=== PATIENT | female | born 1995 | race Caucasian/White ===

== ENCOUNTER 2020-09-01 19:00 | Inpatient (IN) | payer OTHER, SELFPAY ==
[2020-09-01 19:07] VITALS: BP 132/65; PULSE 96; RESP 18; TEMP 36.8; O2SAT 99; BMI 45.3
[2020-09-01 19:34] VITALS: BP 97/66; PULSE 90; RESP 21; TEMP 36.6; O2SAT 98
--- NOTE | 2020-09-01 19:42 | US_ITS ---
EXAMINATION: US ABDOMEN LIMITED CLINICAL INFORMATION: Right upper quadrant pain, evaluate gallbladder. COMPARISON: None TECHNIQUE: Real-time imaging of the right upper quadrant limited to the gallbladder and common bile. FINDINGS: GALLBLADDER: The gallbladder contains a single 4 mm sized gallstone. The gallbladder is otherwise unremarkable, physiologically distended without evidence sludge, polyps, wall thickening or pericholecystic fluid. The gallbladder wall is 2 mm thick. COMMON BILE DUCT: Normal in caliber measuring 0.4 cm in diameter. US/US abdomen limited IMPRESSION: 1 single small gallstone is seen. No other abnormality is present
--- NOTE | 2020-09-01 19:44 | ED.ABDPAIN ---
HPI - Abdominal Pain General Chief Complaint: Abdominal Pain <Linda Hernadez NP - Last Filed: 09/01/20 21:02> Stated Complaint: Flank pain <Linda Hernadez NP - Last Filed: 09/01/20 21:02> Time Seen by Provider: 09/01/20 19:36 <Linda Hernadez NP - Last Filed: 09/01/20 21:02> Source: patient <Linda Hernadez NP - Last Filed: 09/01/20 21:02> Mode of arrival: ambulatory <Linda Hernadez NP - Last Filed: 09/01/20 21:02> Limitations: no limitations <Linda Hernadez NP - Last Filed: 09/01/20 21:02> History of Present Illness HPI narrative: 25 yo female previously healthy here with abdominal pain and nausea x 1 hr after eating [place] food. No vomiting or diarrhea. No fevers/chills/urinary symptoms. Currently on menses. She has generalized abdominal pain more focal in the RUQ and radiating to the back. H/o gallstones. <Linda Hernadez NP - Last Filed: 09/01/20 21:02> MD elicited complaint: abdominal pain <Linda Hernadez NP - Last Filed: 09/01/20 21:02> Onset (ago): hour(s) <Linda Hernadez NP - Last Filed: 09/01/20 21:02> Pain Consistency: constant <Linda Hernadez NP - Last Filed: 09/01/20 21:02> Location: diffuse and RUQ <Linda Hernadez NP - Last Filed: 09/01/20 21:02> Severity: moderate <JO-ANN Nelson Last Filed: 09/01/20 21:02> Quality: sharp <JO-ANN Nelson Last Filed: 09/01/20 21:02> Radiation: back <Linda Hernadez NP - Last Filed: 09/01/20 21:02> Migration to: no migration <Linda Hernadez NP - Last Filed: 09/01/20 21:02> Exacerbating factors: eating <Linda Hernadez NP - Last Filed: 09/01/20 21:02> Associated symptoms: nausea <Linda Hernadez NP - Last Filed: 09/01/20 21:02> Related Data Allergies/Adverse Reactions: Allergies Allergy/AdvReac Type Severity Reaction Status Date / Time No Known Allergies Allergy Verified 09/01/20 19:07 <Linda Hernadez NP - Last Filed: 09/01/20 21:02> Review of Systems Review of Systems Yes all other systems are reviewed and are negative <Linda Hernadez NP - Last Filed: 09/01/20 21:02> Constitutional: Reports no additional constitutional complaints, Denies body ache(s), Denies chills, Denies fever(s), Denies headache(s) and Denies weakness <Linda Hernadez NP - Last Filed: 09/01/20 21:02> Eyes: Reports no additional eye complaints and Denies change in vision <Linda Hernadez NP - Last Filed: 09/01/20 21:02> Reports system reviewed and no additional complaints, except as documented, Denies dizziness, Denies headache(s), Denies nasal congestion, Denies nasal discharge and Denies neck pain <Linda Hernadez NP - Last Filed: 09/01/20 21:02> Cardiovascular: Reports no additional cardiovascular complaints, Denies chest pain, Denies leg edema and Denies dyspnea <Linda Hernadez NP - Last Filed: 09/01/20 21:02> Respiratory: Reports no additional respiratory complaints, Denies cough and Denies dyspnea <Linda Hernadez NP - Last Filed: 09/01/20 21:02> Gastrointestinal: Reports no additional gastrointestinal complaints, Reports abdominal pain, Denies diarrhea, Reports nausea and Denies vomiting <Linda Hernadez NP - Last Filed: 09/01/20 21:02> Genitourinary: Reports no additional female genitourinary complaints and Denies urinary incontinence <Linda Hernadez NP - Last Filed: 09/01/20 21:02> Musculoskeletal: Reports no additional musculoskeletal complaints, Denies back pain, Denies arthralgias, Denies joint swelling, Denies neck pain, Denies numbness and Denies tingling <Linda Hernadez NP - Last Filed: 09/01/20 21:02> Skin/Breast: Reports system reviewed and no additional complaints, except as docu and Denies rash <Linda Hernadez NP - Last Filed: 09/01/20 21:02> Reports system reviewed and no additional complaints, except as documented, Denies Abnormal speech present, Denies dizziness, Denies headache(s), Denies numbness, Denies tingling and Denies weakness <Linda Hernadez NP - Last Filed: 09/01/20 21:02> Physical Exam Vital Signs: Vital Signs: Last Vital Signs Temp 98 F 09/01/20 19:34 Pulse 64 09/01/20 23:05 Resp 16 09/01/20 23:05 BP 111/63 09/01/20 23:05 Pulse Ox 99 09/01/20 23:05 Body Mass Index 45.3 <Linda Hernadez NP - Last Filed: 09/01/20 21:02> Vital Signs: Last Vital Signs Temp 98 F 09/01/20 19:34 Pulse 64 09/01/20 23:05 Resp 16 09/01/20 23:05 BP 111/63 09/01/20 23:05 Pulse Ox 99 09/01/20 23:05 Body Mass Index 45.3 <Ritika De La Torre MD - Last Filed: 09/02/20 00:29> Const: Other: moaning, rocking back and forth, in pain <Linda Hernadez NP - Last Filed: 09/01/20 21:02> General: cooperative, healthy appearing and anxious <Linda Hernadez NP - Last Filed: 09/01/20 21:02> Orientation/consciousness: patient oriented x3 <Linda Hernadez NP - Last Filed: 09/01/20 21:02> Limitations: no limitations <Linda Hernadez NP - Last Filed: 09/01/20 21:02> HENMT: Head: Yes normal to inspection <Linda Hernadez NP - Last Filed: 09/01/20 21:02> Ears: hearing grossly normal bilaterally <Linda Hernadez NP - Last Filed: 09/01/20 21:02> General nose exam: Normal external nose present <Linda Hernadez NP - Last Filed: 09/01/20 21:02> Face and sinus: Yes normal facial exam <Linda Hernadez NP - Last Filed: 09/01/20 21:02> Mouth: Normal oral and palatal mucosa present <Linda Hernadez NP - Last Filed: 09/01/20 21:02> Throat: Yes posterior oropharynx normal <Linda Hernadez NP - Last Filed: 09/01/20 21:02> Eyes: General: appearance normal, both eyes and all related structures <Linda Hernadez NP - Last Filed: 09/01/20 21:02> Pupils: Equal, round and reactive pupils present <Linda Hernadez NP - Last Filed: 09/01/20 21:02> Neck: Neck: Yes normal visual inspection <Linda Hernadez NP - Last Filed: 09/01/20 21:02> Chest: Chest palpation & inspection: normal inspection of the chest <Linda Hernadez NP - Last Filed: 09/01/20 21:02> Resp: Effort & Inspection: normal respiratory effort <Linda Hernadez NP - Last Filed: 09/01/20 21:02> Auscultation: clear to auscultation bilaterally <Linda Hernadez NP - Last Filed: 09/01/20 21:02> Cardio: Rate: regular rate <Linda Hernadez NP - Last Filed: 09/01/20 21:02> Rhythm: regular rhythm <Linda Hernadez NP - Last Filed: 09/01/20 21:02> Peripheral pulses: Peripheral pulses 2+ throughout <Linda Hernadez NP - Last Filed: 09/01/20 21:02> GI: Other: difffuse abdominal pain, more focal in the RUQ, patient holding right side and right flank <Linda Hernadez NP - Last Filed: 09/01/20 21:02> Inspection: Yes normal to inspection <Linda Herndaez NP - Last Filed: 09/01/20 21:02> Palpation (GI): Soft to palpation and nontender <Linda Hernadez NP - Last Filed: 09/01/20 21:02> Auscultation: normal bowel sounds <Linda Hernadez NP - Last Filed: 09/01/20 21:02> Back/Spine/Pelvis: Other: Unable to illicit pain in the back, entire back is reporterd as painful. <Linda Hernadez NP - Last Filed: 09/01/20 21:02> Thoracic/Lumbar Spine: thoracic and lumbar spine normal to inspection <Linda Hernadez NP - Last Filed: 09/01/20 21:02> Skin: General skin exam: no rashes or lesions noted <Linda Hernadez NP - Last Filed: 09/01/20 21:02> Neuro: General: patient oriented x3, no focal motor deficits and normal sensation to monofilament <Linda Hernadez NP - Last Filed: 09/01/20 21:02> Cranial nerves: Yes Equal, round and reactive pupils present <Linda Hernadez NP - Last Filed: 09/01/20 21:02> Cognition (Neuro): normal cognition <Linda Hernadez NP - Last Filed: 09/01/20 21:02> Speech: No Abnormal speech present <Linda Hernadez NP - Last Filed: 09/01/20 21:02> Gait exam (Neuro): Normal gait present <Linda Hernadez NP - Last Filed: 09/01/20 21:02> Motor exam (neuro): 5/5 motor strength present throughout <Linda Hernadez NP - Last Filed: 09/01/20 21:02> Extrem: General: Yes normal to inspection <Linda Hernadez NP - Last Filed: 09/01/20 21:02> Course Course Course Narrative: 25 yo female here with abdominal pain with radiating to the back with nausea after eating kitt[place] food. Will need labs, UA, ur preg and abdominal US. 2100-Sign out to Sarah SLITTER PROCESSED FILM pending above. <Linda Hernadez NP - Last Filed: 09/01/20 21:02> MDM - Abdominal Pain MDM Narrative Medical decision making narrative: renal colic, gastritis, gastroenteritis, cholethiasis, acute maria isabel, pancreatitis. <Linda Hernadez NP - Last Filed: 09/01/20 21:02> Patient abdominal pain continuing the emergency department. The ultrasound showed gallstone no evidence for cholecystitis. CT scan noted multiple nonspecific findings. Question hepatitis. Patient continued to have abdominal pain. Case discussed with hospitalist team. Will admit overnight for monitoring and further testing. <Ritika De La Torre MD - Last Filed: 09/02/20 00:29> Medical Records Attestation: I reviewed the patient's medical records. <Linda Hernadez NP - Last Filed: 09/01/20 21:02> Lab Data Attestation: I reviewed the patient's lab results. <Linda Hernadez NP - Last Filed: 09/01/20 21:02> Result diagrams: : 09/01/20 19:51 09/01/20 19:51 <Linda Hernadez NP - Last Filed: 09/01/20 21:02> Labs: Lab Results 09/01/20 09/01/20 09/01/20 Range/Units 19:51 19:51 19:51 WBC 9.9 (4.8-10.8) X10*3/uL RBC 4.64 (4.20-5.50) X10*6/uL Hgb 12.0 (12.0-16.0) g/dl Hct 37.4 (37-47) % MCV 80.6 (80-98) fL MCH 25.9 L (27.0-33.0) pg MCHC 32.1 (31.0-35.0) g/dl RDW 14.0 (11.0-16.0) % Plt Count 409 H (160-400) X10*3/uL MPV 9.3 L (9.4-12.3) fL Immature Gran % (Auto) 0.2 (0.0-0.4) % Neut % (Auto) 74.2 H (45-73) % Lymph % (Auto) 19.3 L (20-40) % [place] % (Auto) 5.0 (2-11) % Eos % (Auto) 1.1 (0-4) % Baso % (Auto) 0.2 (0-2) % Lymph # (Auto) 1.9 (1.2-4.9) X10*3/uL [place] # (Auto) 0.5 (0.1-1.2) X10*3/uL Eos # (Auto) 0.1 (0.0-0.4) X10*3/uL Baso # (Auto) 0.0 (0.0-0.2) X10*3/uL Abs Immat Gran (auto) 0.02 (0.00-0.03) X10*3/uL Absolute Neuts (auto) 7.3 (2.0-8.3) X10*3/uL Absolute Nucleated RBC 0.000 (0.0-0.012) X10*3/uL Nucleated RBC % (auto) 0.0 (0.0-0.2) /100WBC Hold Blue Top SEE NOTE Sodium 140 (135-145) mmol/L Potassium 4.0 (3.3-5.1) mmol/l Chloride 106 (96-108) mmol/L Carbon Dioxide 23 (22-29) mmol/L Anion Gap 15 (12-20) BUN 10 (9-16) mg/dL Creatinine 0.74 (0.5-1.4) mg/dL Estim Creat Clear Calc 127.2 Estimated GFR > 60 Random Glucose 105 (60-115) mg/dL Calcium 9.2 (8.4-10.2) mg/dL Total Bilirubin 0.4 (0.0-1.0) mg/dL Direct Bilirubin 0.2 (0.0-0.5) mg/dL AST 41 H (5-31) U/L ALT 42 H (0-31) U/L Alkaline Phosphatase 152 H (39-117) U/L Total Protein 7.4 (6.5-8.0) g/dL Albumin 4.5 (3.5-5.0) g/dL Lipase 21 (8-78) U/L Urine Color Urine Appearance Urine pH (5.0-8.0) Ur Specific Dow[place] (1.005-1.025) Urine Protein (NEG-TRACE) MG/DL Urine Glucose (UA) (NEG) MG/DL Urine Ketones (NEG) MG/DL Urine Blood (NEG) Urine Nitrite (NEG) Ur Leukocyte Esterase (NEG) Urine RBC (0) /HPF Urine WBC (0-4) /HPF Ur Squamous Epith Cells /LPF Urine Bacteria /LPF Urine Test (NEGATIVE) 09/01/20 Range/Units 21:13 WBC (4.8-10.8) X10*3/uL RBC (4.20-5.50) X10*6/uL Hgb (12.0-16.0) g/dl Hct (37-47) % MCV (80-98) fL MCH (27.0-33.0) pg MCHC (31.0-35.0) g/dl RDW (11.0-16.0) % Plt Count (160-400) X10*3/uL MPV (9.4-12.3) fL Immature Gran % (Auto) (0.0-0.4) % Neut % (Auto) (45-73) % Lymph % (Auto) (20-40) % [place] % (Auto) (2-11) % Eos % (Auto) (0-4) % Baso % (Auto) (0-2) % Lymph # (Auto) (1.2-4.9) X10*3/uL [place] # (Auto) (0.1-1.2) X10*3/uL Eos # (Auto) (0.0-0.4) X10*3/uL Baso # (Auto) (0.0-0.2) X10*3/uL Abs Immat Gran (auto) (0.00-0.03) X10*3/uL Absolute Neuts (auto) (2.0-8.3) X10*3/uL Absolute Nucleated RBC (0.0-0.012) X10*3/uL Nucleated RBC % (auto) (0.0-0.2) /100WBC Hold Blue Top Sodium (135-145) mmol/L Potassium (3.3-5.1) mmol/l Chloride (96-108) mmol/L Carbon Dioxide (22-29) mmol/L Anion Gap (12-20) BUN (9-16) mg/dL Creatinine (0.5-1.4) mg/dL Estim Creat Clear Calc Estimated GFR Random Glucose (60-115) mg/dL Calcium (8.4-10.2) mg/dL Total Bilirubin (0.0-1.0) mg/dL Direct Bilirubin (0.0-0.5) mg/dL AST (5-31) U/L ALT (0-31) U/L Alkaline Phosphatase (39-117) U/L Total Protein (6.5-8.0) g/dL Albumin (3.5-5.0) g/dL Lipase (8-78) U/L Urine Color YELLOW Urine Appearance HAZY Urine pH 6.0 (5.0-8.0) Ur Specific [place] 1.025 (1.005-1.025) Urine Protein NEG (NEG-TRACE) MG/DL Urine Glucose (UA) NEG (NEG) MG/DL Urine Ketones NEG (NEG) MG/DL Urine Blood 3+ H (NEG) Urine Nitrite NEG (NEG) Ur Leukocyte Esterase 1+ H (NEG) Urine RBC 15-29 H (0) /HPF Urine WBC 5-9 H (0-4) /HPF Ur Squamous Epith Cells TRACE /LPF Urine Bacteria NONE /LPF Urine Test NEGATIVE (NEGATIVE) <Linda Hernadez NP - Last Filed: 09/01/20 21:02> Lab Results 09/01/20 09/01/20 09/01/20 Range/Units 19:51 19:51 19:51 WBC 9.9 (4.8-10.8) X10*3/uL RBC 4.64 (4.20-5.50) X10*6/uL Hgb 12.0 (12.0-16.0) g/dl Hct 37.4 (37-47) % MCV 80.6 (80-98) fL MCH 25.9 L (27.0-33.0) pg MCHC 32.1 (31.0-35.0) g/dl RDW 14.0 (11.0-16.0) % Plt Count 409 H (160-400) X10*3/uL MPV 9.3 L (9.4-12.3) fL Immature Gran % (Auto) 0.2 (0.0-0.4) % Neut % (Auto) 74.2 H (45-73) % Lymph % (Auto) 19.3 L (20-40) % [place] % (Auto) 5.0 (2-11) % Eos % (Auto) 1.1 (0-4) % Baso % (Auto) 0.2 (0-2) % Lymph # (Auto) 1.9 (1.2-4.9) X10*3/uL [place] # (Auto) 0.5 (0.1-1.2) X10*3/uL Eos # (Auto) 0.1 (0.0-0.4) X10*3/uL Baso # (Auto) 0.0 (0.0-0.2) X10*3/uL Abs Immat Gran (auto) 0.02 (0.00-0.03) X10*3/uL Absolute Neuts (auto) 7.3 (2.0-8.3) X10*3/uL Absolute Nucleated RBC 0.000 (0.0-0.012) X10*3/uL Nucleated RBC % (auto) 0.0 (0.0-0.2) /100WBC Hold Blue Top SEE NOTE Sodium 140 (135-145) mmol/L Potassium 4.0 (3.3-5.1) mmol/l Chloride 106 (96-108) mmol/L Carbon Dioxide 23 (22-29) mmol/L Anion Gap 15 (12-20) BUN 10 (9-16) mg/dL Creatinine 0.74 (0.5-1.4) mg/dL Estim Creat Clear Calc 127.2 Estimated GFR > 60 Random Glucose 105 (60-115) mg/dL Calcium 9.2 (8.4-10.2) mg/dL Total Bilirubin 0.4 (0.0-1.0) mg/dL Direct Bilirubin 0.2 (0.0-0.5) mg/dL AST 41 H (5-31) U/L ALT 42 H (0-31) U/L Alkaline Phosphatase 152 H (39-117) U/L Total Protein 7.4 (6.5-8.0) g/dL Albumin 4.5 (3.5-5.0) g/dL Lipase 21 (8-78) U/L Urine Color Urine Appearance Urine pH (5.0-8.0) Ur Specific [place] (1.005-1.025) Urine Protein (NEG-TRACE) MG/DL Urine Glucose (UA) (NEG) MG/DL Urine Ketones (NEG) MG/DL Urine Blood (NEG) Urine Nitrite (NEG) Ur Leukocyte Esterase (NEG) Urine RBC (0) /HPF Urine WBC (0-4) /HPF Ur Squamous Epith Cells /LPF Urine Bacteria /LPF Urine Test (NEGATIVE) 09/01/20 Range/Units 21:13 WBC (4.8-10.8) X10*3/uL RBC (4.20-5.50) X10*6/uL Hgb (12.0-16.0) g/dl Hct (37-47) % MCV (80-98) fL MCH (27.0-33.0) pg MCHC (31.0-35.0) g/dl RDW (11.0-16.0) % Plt Count (160-400) X10*3/uL MPV (9.4-12.3) fL Immature Gran % (Auto) (0.0-0.4) % Neut % (Auto) (45-73) % Lymph % (Auto) (20-40) % [place] % (Auto) (2-11) % Eos % (Auto) (0-4) % Baso % (Auto) (0-2) % Lymph # (Auto) (1.2-4.9) X10*3/uL [place] # (Auto) (0.1-1.2) X10*3/uL Eos # (Auto) (0.0-0.4) X10*3/uL Baso # (Auto) (0.0-0.2) X10*3/uL Abs Immat Gran (auto) (0.00-0.03) X10*3/uL Absolute Neuts (auto) (2.0-8.3) X10*3/uL Absolute Nucleated RBC (0.0-0.012) X10*3/uL Nucleated RBC % (auto) (0.0-0.2) /100WBC Hold Blue Top Sodium (135-145) mmol/L Potassium (3.3-5.1) mmol/l Chloride (96-108) mmol/L Carbon Dioxide (22-29) mmol/L Anion Gap (12-20) BUN (9-16) mg/dL Creatinine (0.5-1.4) mg/dL Estim Creat Clear Calc Estimated GFR Random Glucose (60-115) mg/dL Calcium (8.4-10.2) mg/dL Total Bilirubin (0.0-1.0) mg/dL Direct Bilirubin (0.0-0.5) mg/dL AST (5-31) U/L ALT (0-31) U/L Alkaline Phosphatase (39-117) U/L Total Protein (6.5-8.0) g/dL Albumin (3.5-5.0) g/dL Lipase (8-78) U/L Urine Color YELLOW Urine Appearance HAZY Urine pH 6.0 (5.0-8.0) Ur Specific [place] 1.025 (1.005-1.025) Urine Protein NEG (NEG-TRACE) MG/DL Urine Glucose (UA) NEG (NEG) MG/DL Urine Ketones NEG (NEG) MG/DL Urine Blood 3+ H (NEG) Urine Nitrite NEG (NEG) Ur Leukocyte Esterase 1+ H (NEG) Urine RBC 15-29 H (0) /HPF Urine WBC 5-9 H (0-4) /HPF Ur Squamous Epith Cells TRACE /LPF Urine Bacteria NONE /LPF Urine Test NEGATIVE (NEGATIVE) <Ritika De La Torre MD - Last Filed: 09/02/20 00:29> [facility] Past Medical History Attestation statement: The following information was validated with the patient. <Linda Hernadez NP - Last Filed: 09/01/20 21:02> Source: old records reviewed and nursing notes reviewed <Linda Hernadez NP - Last Filed: 09/01/20 21:02> Medical History: Medical History delivery delivered <Linda Hernadez NP - Last Filed: 09/01/20 21:02> Social History Social History: Social History Smoked in Last 30 Days: No Use of substances other than those prescribed or required for medical reasons: Yes Substance Use Type: Marijuana Advance Directives: No Advance Directives Information Provided: Yes <Linda Hernadez NP - Last Filed: 09/01/20 21:02>
[2020-09-01] MEDS: 0.9 % Sodium Chloride 1,000 ML 999 ML IVCONT (19:54)
[2020-09-01] MEDS: ondansetron HCL 4 MG/2 ML VIAL IVPUSH (19:57)
[2020-09-01] MEDS: fentaNYL citrate/PF 100 MCG/2 ML VIAL 50 MCG IVPUSH (19:58)
[2020-09-01] MEDS: Famotidine/PF 20 MG/2 ML VIAL IVPUSH (20:00)
[2020-09-01 20:02] LABS: MANUAL DIFF FLAG NO
[2020-09-01 20:05] LABS: Basophils Percent Auto 0.2 % (0-2); Eosinophils Absolute Auto 0.1 X10*3/uL (0.0-0.4); Eosinophils Percent Auto 1.1 % (0-4); Hematocrit 37.4 % (37-47); Imm Gran Abs Auto 0.02 X10*3/uL (0.00-0.03); Imm Gran Pct Auto 0.2 % (0.0-0.4); Lymphocytes Absolute Auto 1.9 X10*3/uL (1.2-4.9); Lymphocytes Percent Auto 19.3 % (20-40); Mean Corpuscular HGB Conc 32.1 g/dl (31.0-35.0); Mean Corpuscular Hemoglobin 25.9 pg (27.0-33.0); Mean Corpuscular Volume 80.6 fL (80-98); Mean Platelet Volume 9.3 fL (9.4-12.3); Monocytes Absolute Auto 0.5 X10*3/uL (0.1-1.2); Neutrophils Absolute Auto 7.3 X10*3/uL (2.0-8.3); Neutrophils Percent Auto 74.2 % (45-73); Platelet Count 409 X10*3/uL (160-400); Red Blood Count 4.64 X10*6/uL (4.20-5.50); White Blood Count 9.9 X10*3/uL (4.8-10.8)
[2020-09-01 20:26] LABS: Alanine Aminotransferase 42 U/L (0-31); Albumin Level 4.5 g/dL (3.5-5.0); Alkaline Phosphatase 152 U/L (39-117); Anion Gap 15 (12-20); Aspartate Amino Transferase 41 U/L (5-31); Bilirubin Direct 0.2 mg/dL (0.0-0.5); Bilirubin Total 0.4 mg/dL (0.0-1.0); Blood Urea Nitrogen 10 mg/dL (9-16); Calcium 9.2 mg/dL (8.4-10.2); Carbon Dioxide 23 mmol/L (22-29); Chloride 106 mmol/L (96-108); Creatinine Clr Calc Pharmacy 127.2; Estimated Glomerular Filt Rate > 60; Glucose Random 105 mg/dL (60-115); Lipase 21 U/L (8-78); Sodium 140 mmol/L (135-145); Total Protein 7.4 g/dL (6.5-8.0)
--- NOTE | 2020-09-01 20:42 | PC.NURSE ---
Pt aware of urine sample but states she is unable to go right now. U/S at bedside. Continue to monitor.
--- NOTE | 2020-09-01 21:14 | PC.NURSE ---
UA obtained and sent. Pt resting in bed, reports 5/10 pain, states the pain is radiating into her lower back from the left side of her abdomen. VSS. Continue to monitor.
[2020-09-01 21:15] VITALS: BP 117/76; PULSE 70; RESP 16; O2SAT 99
[2020-09-01 21:25] LABS: Glucose Urine UA NEG (NEG); Leukocyte Esterase Urine 1+ (NEG); Nitrite Urine NEG (NEG); Specific Gravity - Urine 1.025 (1.005-1.025); Urine Blood 3+ (NEG); Urine Ketones NEG (NEG); Urine Protein NEG (NEG-TRACE)
[2020-09-01 21:29] LABS: Appearance Urine HAZY; Color Urine YELLOW
[2020-09-01 21:50] LABS: Squamous Epithelial Cell Urine TRACE /LPF; UPreg QC Valid YES; Urine Pregnancy NEGATIVE (NEGATIVE)
--- NOTE | 2020-09-01 22:11 | CT_ITS ---
EXAMINATION: CT ABDOMEN AND PELVIS WITH CONTRAST CLINICAL INFORMATION: Abdominal pain COMPARISON: Ultrasound performed 09/01/2020 TECHNIQUE: Multidetector volumetric images were obtained from the superior aspect of the liver through the pubic symphysis following administration 85 mL of Omnipaque 350 intravenous contrast. Sagittal and coronal reformatted images were obtained on the technologist's workstation. Oral contrast: No This CT examination was performed using dose optimization techniques as appropriate, variously including the following: *Automated exposure control *Adjustment of mA and/or kV according to patient size (this includes techniques or standardized protocols for targeted exams where dose is matched to indication/reason for exam; i.e. extremities or head) *Use of iterative reconstruction technique DLP: 920 mGy-cm FINDINGS: LUNG BASES: The visualized lung bases are unremarkable. LIVER, GALLBLADDER, AND BILIARY TREE: There is mottled low-attenuation changes throughout the right lobe of liver more prominent posteriorly. No intra or extra hepatic biliary dilatation. Cholelithiasis. Mild pericholecystic fluid. PANCREAS: Unremarkable. SPLEEN: Unremarkable. ADRENAL GLANDS: Unremarkable. KIDNEYS AND URETERS: The kidneys are normal in size, shape, and attenuation. No hydronephrosis, hydroureter, or calculi seen. No perinephric stranding. BLADDER: Unremarkable. GASTROINTESTINAL TRACT: The small and large bowel are unremarkable. The appendix is unremarkable. ABDOMINAL WALL: No significant hernia is appreciated. LYMPH NODES: Normal. VASCULAR: Unremarkable. PELVIC VISCERA: Evidence of prior section. There is a scar within the anterior lower uterine segment, and along the anterior uterus with scar tissue extending to the anterior abdominal wall. No adnexal abnormalities. OSSEOUS STRUCTURES: Unremarkable. CT/CT abdomen pelvis w con IMPRESSION: * Diffusely heterogeneous right lobe of liver with low-attenuation changes predominating posteriorly. Vessels are coursing through the areas showing low-attenuation change, for example within hepatic segment 7. This could represent hepatitis, although the right hepatic predominance would be atypical for a viral hepatitis. While the dependent right sided changes are suggestive of pyogenic gastrointestinal source of infection, the lack of fever or elevated white blood cell count make this less likely. Fungal infection is possible, although statistically unlikely in the absence of immunocompromise or suggestive travel history. Geographic hepatic steatosis can look this way, however is somewhat atypical. * Cholelithiasis and mild pericholecystic fluid. The recent right upper quadrant ultrasound demonstrated a positive sonographic Rees sign. While there were no other imaging features of cholecystitis, consider HIDA scan to confirm patency of the cystic duct. This critical result was discussed with Ritika De La Torre M.D. at 12:12 AM on 09/02/2020 and it was ascertained that the content and urgency of the report was understood at the time of direct communication.
[2020-09-01 23:05] VITALS: BP 111/63; PULSE 64; RESP 16; O2SAT 99
[2020-09-01] MEDS: iohexoL 350 MG/ML 100 ML INFUS..BTL 85 ML IV (23:56)
[2020-09-02] VITALS (7 sets, daily range): BP systolic 99–119; BP diastolic 49–71; PULSE 62–86; RESP 16–18; TEMP 36.3–37.1; O2SAT 97–100; BMI 45.2
--- NOTE | 2020-09-02 00:07 | PC.NURSE ---
Pt ambulating to/from the bathroom with a gaines/steady gait.
--- NOTE | 2020-09-02 00:31 | PC.NURSE ---
MD at bedside discussing CT results and plan to admit. Med Rec completed at bedside with pt, per pt, no home medications.
--- NOTE | 2020-09-02 00:39 | PC.NURSE ---
Covid swab obtained and sent.
--- NOTE | 2020-09-02 00:43 | PC.NURSE ---
Hospitalist at bedside.
[2020-09-02 01:01] LABS: COVID-19 Test Negative (Negative); IDNOW Serial# 9DD0AD1C
--- NOTE | 2020-09-02 05:24 | P.HPHOSP_ITS ---
History of Present Illness Date of Service: 09/02/20 Chief Complaint: abdominal pain this is a 25-year-old female with no significant past medical history and recently about 6 weeks now who presents to the hospital with complaints of abdominal pain. Patient describes the pain as epigastric, radiating to the sides and to the back, associated with food intake, 10/10, that started the night prior to presentation, she also reports a similar episode shortly after giving but not as severe. Patient denies any fever or chills. No shortness of breath chest pain, or cough. Nausea with no vomiting, no diarrhea constipation. No urinary symptoms and no lower extremity edema. On arrival to the ED hemodynamically stable with no significant abnormal vitals. Labs are significant for mildly elevated AST of 41, ALT of 42, alk-phos of 152, urine is positive for leukocyte Estrace, and WBC but patient the adamantly denies any dysuria, no urgency, frequency, or any type of urinary symptoms. Abdominal CT suggestive of diffusely heterogeneous right lobe of liver with low attenuation changes predominantly posterior early. Vessels are coursing through the areas showing low-attenuation change. This could represent hepatitis, although the right hepatic predominance would be atypical for viral hepatitis. While the dependent right-sided changes are suggestive of hygienic gastrointestinal starts of infection, The lack of fever, or elevated WBC count makes this less likely. Fungal infections less likely in an immunocompetent patient. CT also be suggestive of geographic hepatic steatosis. ultrasound of the abdomen showed Cholelithiasis and mild pericholecystic fluid is present and ultrasound demonstrate a positive sonographic Rees sign. past medical history: Denies next on past surgical history Family history: Denies Social history: Comes from home, recently gave to her son on July 19. Denies tobacco alcohol or illicit drugs Review of Systems Review of Systems: Yes all other systems are reviewed and are negative Musculoskeletal: Musculoskeletal: Denies numbness and Denies tingling Neurologic: Reports system reviewed and no additional complaints, except as documented, Denies Abnormal speech present, Denies numbness and Denies tingling PMFSH Medical History delivery delivered Social History Smoked in Last 30 Days: No Use of substances other than those prescribed or required for medical reasons: Yes Substance Use Type: Marijuana Advance Directives: No Advance Directives Information Provided: Yes Meds Allergies Allergy/AdvReac Type Severity Reaction Status Date / Time No Known Allergies Allergy Verified 09/01/20 19:07 Home Medications Medication Instructions Recorded Confirmed Type No Known Home Meds 09/02/20 09/02/20 History Physical Exam Vital Signs and Narrative: Vital Signs: Last Vital Signs Temp 98 F 09/01/20 19:34 Pulse 80 09/02/20 03:02 Resp 16 09/02/20 03:02 BP 99/49 L 09/02/20 03:02 Pulse Ox 99 09/01/20 23:05 Body Mass Index 45.3 Const: General: cooperative and no acute distress Orientation/consciousness: patient oriented x3 Eyes: General: appearance normal, both eyes and all related structures Pupils: Equal, round and reactive pupils present Resp: Effort & Inspection: normal respiratory effort and able to speak in complete sentences Auscultation: clear to auscultation bilaterally Cardio: Rate: regular rate Rhythm: regular rhythm GI: Other: right upper quadrant tenderness. Rees sign positive Palpation (GI): Soft to palpation Skin: General skin exam: no rashes or lesions noted Neuro: General: patient oriented x3 Cranial nerves: Yes Equal, round and reactive pupils present Cognition (Neuro): normal cognition Speech: No Abnormal speech present Extrem: General: Yes normal to inspection and Yes no pedal edema Results Labs CBC and Chem 7: 09/01/20 19:51 09/01/20 19:51 Labs: Laboratory Results - last 24 hr 09/01/20 09/01/20 09/01/20 19:51 19:51 19:51 MCV 80.6 MCH 25.9 L MCHC 32.1 RDW 14.0 Plt Count 409 H MPV 9.3 L Immature Gran % (Auto) 0.2 Neut % (Auto) 74.2 H Lymph % (Auto) 19.3 L [place] % (Auto) 5.0 Eos % (Auto) 1.1 Baso % (Auto) 0.2 Lymph # (Auto) 1.9 [place] # (Auto) 0.5 Eos # (Auto) 0.1 Baso # (Auto) 0.0 Abs Immat Gran (auto) 0.02 Absolute Neuts (auto) 7.3 Absolute Nucleated RBC 0.000 Nucleated RBC % (auto) 0.0 Hold Blue Top SEE NOTE Anion Gap 15 Estim Creat Clear Calc 127.2 Estimated GFR > 60 Random Glucose 105 Calcium 9.2 Total Bilirubin 0.4 Direct Bilirubin 0.2 AST 41 H ALT 42 H Alkaline Phosphatase 152 H Total Protein 7.4 Albumin 4.5 Lipase 21 Urine Color Urine Appearance Urine pH Ur Specific [place] Urine Protein Urine Glucose (UA) Urine Ketones Urine Blood Urine Nitrite Ur Leukocyte Esterase Urine RBC Urine WBC Ur Squamous Epith Cells Urine Bacteria Urine Test COVID-19 (ELVI) COVID-19 Clin Com 09/01/20 09/02/20 21:13 00:38 MCV MCH MCHC RDW Plt Count MPV Immature Gran % (Auto) Neut % (Auto) Lymph % (Auto) [place] % (Auto) Eos % (Auto) Baso % (Auto) Lymph # (Auto) [place] # (Auto) Eos # (Auto) Baso # (Auto) Abs Immat Gran (auto) Absolute Neuts (auto) Absolute Nucleated RBC Nucleated RBC % (auto) Hold Blue Top Anion Gap Estim Creat Clear Calc Estimated GFR Random Glucose Calcium Total Bilirubin Direct Bilirubin AST ALT Alkaline Phosphatase Total Protein Albumin Lipase Urine Color YELLOW Urine Appearance HAZY Urine pH 6.0 Ur Specific [place] 1.025 Urine Protein NEG Urine Glucose (UA) NEG Urine Ketones NEG Urine Blood 3+ H Urine Nitrite NEG Ur Leukocyte Esterase 1+ H Urine RBC 15-29 H Urine WBC 5-9 H Ur Squamous Epith Cells TRACE Urine Bacteria NONE Urine Test NEGATIVE COVID-19 (ELVI) Negative COVID-19 Clin Com See Note Imaging Radiologist's Impressions: Impressions Abdomen Ultrasound 09/01/20 19:42 IMPRESSION: 1 single small gallstone is seen. No other abnormality is present Abdomen/Pelvis CT 09/01/20 22:11 IMPRESSION: * Diffusely heterogeneous right lobe of liver with low-attenuation changes predominating posteriorly. Vessels are coursing through the areas showing low-attenuation change, for example within hepatic segment 7. This could represent hepatitis, although the right hepatic predominance would be atypical for a viral hepatitis. While the dependent right sided changes are suggestive of pyogenic gastrointestinal source of infection, the lack of fever or elevated white blood cell count make this less likely. Fungal infection is possible, although statistically unlikely in the absence of immunocompromise or suggestive travel history. Geographic hepatic steatosis can look this way, however is somewhat atypical. * Cholelithiasis and mild pericholecystic fluid. The recent right upper quadrant ultrasound demonstrated a positive sonographic Rees sign. While there were no other imaging features of cholecystitis, consider HIDA scan to confirm patency of the cystic duct. This critical result was discussed with Ritika De La Torre M.D. at 12:12 AM on 09/02/2020 and it was ascertained that the content and urgency of the report was understood at the time of direct communication. Assessment and Plan (1) Abdominal pain: Status: Acute (2) Liver lesion: Status: Acute (3) Cholelithiasis: Status: Acute (4) Transaminitis: Status: Acute this is a 25-year-old female with no significant PMH Was recently , presents to the hospital with abdominal pain. # abdominal pain - most likely secondary to cholecystitis - although has no evidence of cholecystitis specifically on ultrasound or CT scan patient does have a positive Rees sign, ultrasound showed pericholecystic fluid - afebrile, no leukocytosis Plan: - Will make NPO - pain control - consult general surgery # liver lesion - possibly liver changes elated to including fatty liver changes versus acute hepatitis although has no symptoms besides the pain - unlikely to be a an infection of the liver as patient afebrile, no leukocytosis, no evidence of infection Plan: - Will order hepatitis A B C panel - consult GI - will hold off on ordering HIDA scan pending GI recommendation # transaminitis - most likely related to cholecystitis - will follow LFTs DVT prophylaxis: Lovenox
--- NOTE | 2020-09-02 06:45 | PC.NURSE ---
This RN at bedside to obtain an updated set of VS and bloodwork. This RN noticing that pts IV had been removed. Pt states that it was removed during CT as it blew up. A second IV line was established, labs obtained and sent. Pt now reporting burning and dysuria beginning when she woke up this morning. This RN tiger texting hospitalist to inform her of new symptoms regarding UTI. Per MD, to administer Rocephin, no BCX ordered. VSS. Rocephin infusing per EMAR. Continue to monitor.
[2020-09-02] MEDS: cefTRIAXone sodium 1 GM in 0.9 % Sodium Chloride 50 ML IV (06:47)
--- NOTE | 2020-09-02 10:49 | PC.NURSE ---
pt needs being met, waiting on bed assignment
--- NOTE | 2020-09-02 14:01 | PC.NURSE ---
rn will call back for report
--- NOTE | 2020-09-02 14:06 | PM.GICN ---
History of Present Illness Data of Consult Service Date: 09/02/20 Requesting physician: Ramos Hodge Primary Care Provider: Silas Ayala MD [facility] Reason for consult: abdominal pain, abnormal CT scan, elevated LFTs, gallstone 25 YF presented to [facility] ED yesterday evening with sudden onset of upper abdominal pain: 25 yo female previously healthy here with abdominal pain and nausea x 1 hr after eating Pashto food. No vomiting or diarrhea. No fevers/chills/urinary symptoms. Currently on menses. She has generalized abdominal pain more focal in the RUQ and radiating to the back. H/o gallstones . Labs showed normal CBC and lipase and mildly elevated LFTs. Pt was started on IV ceftriaxone and admitted for further management. IMAGING STUDIES: 09/01/[address] scan showed: Diffusely heterogeneous right lobe of liver with low-attenuation changes predominating posteriorly. Vessels are coursing through the areas showing low-attenuation change, for example within hepatic segment 7. This could represent hepatitis, although the right hepatic predominance would be atypical for a viral hepatitis. While the dependent right sided changes are suggestive of pyogenic gastrointestinal source of infection, the lack of fever or elevated white blood cell count make this less likely. Fungal infection is possible, although statistically unlikely in the absence of immunocompromise or suggestive travel history. Geographic hepatic steatosis can look this way, however is somewhat atypical. Cholelithiasis and mild pericholecystic fluid. The recent right upper quadrant ultrasound demonstrated a positive sonographic Rees sign. While there were no other imaging features of cholecystitis, consider HIDA scan to confirm patency of the cystic duct. Patient complains of 10/10 epigastric/RUQ pain yesterday. Pain was a initially burning and felt like hunger pains. Pain changed to cramping and punching in character and radiated laterally and to the back. Patient came to [facility] ED and pain resolved after 2 hours when she was given IV Sublimaze 50 mcg. She complains of nausea and denies vomiting, fever, chills, sweating or change in appetite or bowel movements. Denies recent change in bowel habits, constipation, diarrhea, black stools or rectal bleeding. Patient admits to losing weight which she attributes to not eating since she is taking care of a 6-week-old baby. She delivered by on 07/19/20 and had to stop breast feeding due to difficulty with . Patient denies known family history of liver disease, colon polyps, colon cancer or other GI malignancies. Her grandmother had gallstones and underwent cholecystectomy. Review of Systems Constitutional: Constitutional: Denies fever(s), Denies headache(s), Denies weakness and Reports weight loss Eyes: Eyes: Denies eye discharge and Denies irritation ENT: Denies dysphagia, Denies dizziness and Denies headache(s) Cardiovascular: Cardiovascular: Denies chest pain, Denies leg edema and Denies dyspnea on exertion Respiratory: Respiratory: Denies cough and Denies dyspnea on exertion Gastrointestinal: Gastrointestinal: Reports abdominal pain, Denies change in bowel habits, Denies dysphagia, Denies heartburn and Reports nausea Genitourinary: Genitourinary: Denies difficulty voiding and Denies dysuria Musculoskeletal: Musculoskeletal: Denies numbness and Denies tingling Integumentary/Breasts: Skin/Breast: Denies pruritus, Denies rash and Denies jaundice Neurologic: Reports system reviewed and no additional complaints, except as documented, Denies Abnormal speech present, Denies dizziness, Denies headache(s), Denies numbness, Denies tingling and Denies weakness Psychiatric: Psychiatric: Reports anxiety, Denies depression ( Mild depression) and Denies panic attacks Endocrine: Endocrine: Denies cold intolerance, Denies flushing and Denies heat intolerance PMFSH Past Medical History Medical History (Updated 10/07/20 @ 17:04 by Garrett Redd MD) delivery delivered (~06/2020) Transaminitis Social History Social History Household Members: Family Housing: Apartment Smoking Status: Never smoker Substance Use Type: Marijuana service: No Current occupational status: unemployed Meds Allergies Allergy/AdvReac Type Severity Reaction Status Date / Time No Known Allergies Allergy Verified 09/01/20 19:07 Home Medications Medication Instructions Recorded Confirmed Type No Known Home Meds 09/02/20 09/02/20 History Physical Exam Vital Signs: Vital Signs: Last Vital Signs Temp 98.7 F 09/02/20 10:35 Pulse 80 09/02/20 10:35 Resp 18 09/02/20 10:35 BP 119/66 09/02/20 10:35 Pulse Ox 98 09/02/20 10:35 Body Mass Index 45.3 Const: General: healthy appearing and no acute distress Nutritional Appearance: average body habitus Orientation/consciousness: patient oriented x3 Limitations: no limitations HENMT: Head: Yes normal to inspection Ears: hearing grossly normal bilaterally Eyes: Sclerae: sclerae normal Pupils: Equal, round and reactive pupils present Neck: Neck: Yes normal visual inspection Chest: Chest palpation & inspection: normal inspection of the chest Resp: Effort & Inspection: normal respiratory effort Auscultation: clear to auscultation bilaterally Cardio: Palpation: normal PMI Rate: regular rate Rhythm: regular rhythm Heart sounds: S1 normal heart sound present, S2 normal heart sound present and no murmurs GI: Palpation (GI): Soft to palpation, Tenderness to palpation present (GI) (mild diffuse abdominal tenderness in epigastrium, RUQ and suprapubic area) and No hepatosplenomegaly present Auscultation: normal bowel sounds Rectal Exam - Female: deferred Skin: General skin exam: no rashes or lesions noted Neuro: General: patient oriented x3, gait normal and moves all extremities Cranial nerves: Yes Equal, round and reactive pupils present Speech: No Abnormal speech present Psych: Appearance: grossly normal Mental Status: mental status grossly normal Results Labs CBC & Chem 7: 09/03/20 04:18 09/03/20 04:18 Labs: Short CBC 09/01/20 Range/Units 19:51 WBC 9.9 (4.8-10.8) X10*3/uL Hgb 12.0 (12.0-16.0) g/dl Hct 37.4 (37-47) % Plt Count 409 H (160-400) X10*3/uL BMP 09/01/20 19:51 Sodium 140 Potassium 4.0 Chloride 106 Carbon Dioxide 23 BUN 10 Creatinine 0.74 Calcium 9.2 Liver Function 09/01/20 Range/Units 19:51 Total Bilirubin 0.4 (0.0-1.0) mg/dL Direct Bilirubin 0.2 (0.0-0.5) mg/dL AST 41 H (5-31) U/L ALT 42 H (0-31) U/L Alkaline Phosphatase 152 H (39-117) U/L Albumin 4.5 (3.5-5.0) g/dL Urine 09/01/20 Range/Units 21:13 Urine Color YELLOW Urine Appearance HAZY Urine pH 6.0 (5.0-8.0) Ur Specific [place] 1.025 (1.005-1.025) Urine Protein NEG (NEG-TRACE) MG/DL Urine Glucose (UA) NEG (NEG) MG/DL Microbiology Microbiology Results: Microbiology 09/01/20 00:00 Urine clean catch - Clean Catch Midstream Urine Culture - Preliminary No growth to date. Assessment and Plan (1) Transaminitis: Status: Inactive (2) Cholelithiasis: Status: Acute (3) Abdominal pain: Status: Acute 25 YF 6 weeks status post admitted with epigastric/RUQ pain associated with nausea Abd CT scan showed Cholelithiasis and mild pericholecystic fluid. Diffusely heterogeneous right lobe of liver with low-attenuation changes predominating posteriorly and low attenuation changes in the vessels coursing through the area. This was felt to represent hepatitis or geographic hepatic steatosis. RECOMMENDATIONS: 1. Continue IV antibiotic. 2. Further evaluation with HIDA scan rule out biliary source of abdominal pain elevated LFTs - given recent , she is at increased risk for gallstones and microlithiasis 3. Agree with Surgical evaluation. ADDENDUM: HIDA scan showed Patent cystic duct. Patent CBD. Normal hepatic uptake.
--- NOTE | 2020-09-02 14:27 | PC.NURSE ---
report given to jaiden Dey be ready for patient until closer to 3
[2020-09-02] MEDS: 0.9 % Sodium Chloride Flush 3 ML SYRINGE IVFLUSH (16:32)
--- NOTE | 2020-09-02 17:10 | P.EN_ITS ---
Event Note Date of Service: 09/02/20 Event Note: 25 yo F who is about 6 weeks post presenting with RUQ abdom inal pain most consistant with bilary colic. Admitted for for w/u; S Seen and examined in the ED reports improvement in the RUQ pain reports on going, even during her at which she was told it was ligament pain reports several episodes after delivery of the pain. no real association with diet, and actually states more painful on empty stomach O vitals - stable gen - nad cvs - s1s2 lungs - clear abd - soft, RUQ tenderness without rebound or guarding ext - no edema A/P 25 yo F with what appears as signs suggestive of biliary colic GI input appreciated Gen Surg consulted HIDA scan ordered will place on clear liquids IV fluids remainder per H&P
[2020-09-02] MEDS: Dextrose 5 % and 0.9 % NaCl 1,000 ML 100 ML IVCONT (17:53)
--- NOTE | 2020-09-02 19:43 | PM.CNGS ---
History of Present Illness Consult details Consult date: 09/02/20 <JILLIAN Smith - Last Filed: 09/02/20 20:22> Reason for consult: abdominal pain <JILLIAN Smith - Last Filed: 09/02/20 20:22> Requesting physician: Ramos Hodge <JILLIAN Smith - Last Filed: 09/02/20 20:22> Narrative: Patient is a 25 yo female ~6 weeks post- presents for ABD pain following eating on the evening of 09/01. She states she has had intermittent episodes like this in the past the most recent around the time of her . She denies any N/V/D. She reports that the pain is mostly located in the RUQ with some radiation to her back at its worst a /. . Labs showed normal CBC and lipase and mildly elevated LFTs. Pt was started on IV ceftriaxone and admitted for further management. Surgery was consulted for further evaluation. ? Transaminitis vs biliary cholic <JILLIAN Smith - Last Filed: 09/02/20 20:22> Review of Systems Constitutional: Constitutional: Denies headache(s) and Denies weakness <JILLIAN Smith - Last Filed: 09/02/20 20:22> ENT: Denies dizziness and Denies headache(s) <JILLIAN Smith - Last Filed: 09/02/20 20:22> Musculoskeletal: Musculoskeletal: Denies numbness and Denies tingling <JILLIAN Smith - Last Filed: 09/02/20 20:22> Neurologic: Reports system reviewed and no additional complaints, except as documented, Denies dizziness, Denies headache(s), Denies numbness, Denies tingling and Denies weakness <JILLIAN Smith - Last Filed: 09/02/20 20:22> [facility] Past Medical History Medical History: Medical History (Updated 09/02/20 @ 20:11 by JILLIAN Smith) delivery delivered (~06/2020) <JILLIAN Smith - Last Filed: 09/02/20 20:22> Social History Social History: Social History Household Members: Family Housing: Apartment Smoking Status: Never smoker Smoked in Last 30 Days: No Use of substances other than those prescribed or required for medical reasons: No Substance Use Type: Marijuana Have you been hit, kicked, punched, or otherwise hurt by someone within the past year? If so, by whom?: No Is there a partner from a previous relationship who is making you feel unsafe now?: No Are you made to feel afraid or neglected: No Advance Directives: No Advance Directives Information Provided: Yes Do you have thoughts of harming others: None Do you have a plan to hurt others: No Plan Recently lost weight without trying: No <JILLIAN Smith - Last Filed: 09/02/20 20:22> Meds Allergies/Adverse reactions: Allergies Allergy/AdvReac Type Severity Reaction Status Date / Time No Known Allergies Allergy Verified 09/01/20 19:07 <JILLIAN Smith - Last Filed: 09/02/20 20:22> Home medications: Home Medications Medication Instructions Recorded Confirmed Type No Known Home Meds 09/02/20 09/02/20 History <JILLIAN Smith - Last Filed: 09/02/20 20:22> Physical Exam Vital Signs: Vital Signs: Last Vital Signs Temp 97.4 F 09/02/20 19:13 Pulse 86 09/02/20 19:13 Resp 16 09/02/20 19:13 BP 107/71 09/02/20 19:13 Pulse Ox 100 09/02/20 19:13 Body Mass Index 45.2 <JILLIAN Smith - Last Filed: 09/02/20 20:22> Results Labs Result diagrams: : 09/01/20 19:51 09/01/20 19:51 <JILLIAN Smith - Last Filed: 09/02/20 20:22> Labs: Abnormal lab results 09/01/20 09/01/20 09/01/20 Range/Units 19:51 19:51 21:13 MCH 25.9 L (27.0-33.0) pg Plt Count 409 H (160-400) X10*3/uL MPV 9.3 L (9.4-12.3) fL Neut % (Auto) 74.2 H (45-73) % Lymph % (Auto) 19.3 L (20-40) % AST 41 H (5-31) U/L ALT 42 H (0-31) U/L Alkaline Phosphatase 152 H (39-117) U/L Urine Blood 3+ H (NEG) Ur Leukocyte Esterase 1+ H (NEG) Urine RBC 15-29 H (0) /HPF Urine WBC 5-9 H (0-4) /HPF Short CBC 09/01/20 Range/Units 19:51 WBC 9.9 (4.8-10.8) X10*3/uL Hgb 12.0 (12.0-16.0) g/dl Hct 37.4 (37-47) % Plt Count 409 H (160-400) X10*3/uL BMP 09/01/20 19:51 Sodium 140 Potassium 4.0 Chloride 106 Carbon Dioxide 23 BUN 10 Creatinine 0.74 Calcium 9.2 Liver Function 09/01/20 Range/Units 19:51 Total Bilirubin 0.4 (0.0-1.0) mg/dL Direct Bilirubin 0.2 (0.0-0.5) mg/dL AST 41 H (5-31) U/L ALT 42 H (0-31) U/L Alkaline Phosphatase 152 H (39-117) U/L Albumin 4.5 (3.5-5.0) g/dL Urine 09/01/20 Range/Units 21:13 Urine Color YELLOW Urine Appearance HAZY Urine pH 6.0 (5.0-8.0) Ur Specific [place] 1.025 (1.005-1.025) Urine Protein NEG (NEG-TRACE) MG/DL Urine Glucose (UA) NEG (NEG) MG/DL Urine Test NEGATIVE (NEGATIVE) All other labs normal. <JILLIAN Smith - Last Filed: 09/02/20 20:22> Assessment and Plan (1) Abdominal pain: Problem details: Evidence of stones on U/S with positive sonographic mallory's sign. There is also some mild elevation of LFT's w/ possible liver pathology. WBC WNL. <JILLIAN Smith - Last Filed: 09/02/20 20:22> Status: Acute <JILLIAN Smith - Last Filed: 09/02/20 20:22> No emergent surgical intervention needed at this time. Recommend HIDA scan to determine bile duct patency Pain mgmt IVF Continue ABX NPO <JILLIAN Smith - Last Filed: 09/02/20 20:22> . General Surgery Attending - Abdirahman Mora M.D. Patient was evaluated with Mr. Juan C Greer PA-C in general supervision over phone. I confirm above findings and plan as documented. Pt is a 25 yo F with gallstones but with no other significant findings of cholecystitis to warrant urgent surgery. Agree w/ HIDA scan if in need of further diagnosing acute cholecystitis. <Jose Mora MD - Last Filed: 09/02/20 22:19>
[2020-09-02] MEDS: Acetaminophen 325 MG TABLET 650 MG PO (20:28)
[2020-09-03] VITALS: BP 122/65; PULSE 68; RESP 14; RESP 16; TEMP 36.1; O2SAT 99
[2020-09-03 04:00] VITALS: BP 120/65; PULSE 72; RESP 18; TEMP 36.1; O2SAT 99
[2020-09-03] MEDS: Dextrose 5 % and 0.9 % NaCl 1,000 ML 100 ML IVCONT (04:17)
[2020-09-03 04:35] LABS: MANUAL DIFF FLAG NO
[2020-09-03 04:42] LABS: Basophils Percent Auto 0.2 % (0-2); Eosinophils Absolute Auto 0.2 X10*3/uL (0.0-0.4); Eosinophils Percent Auto 2.4 % (0-4); Hematocrit 35.7 % (37-47); Hemoglobin 11.2 g/dl (12.0-16.0); Imm Gran Abs Auto 0.01 X10*3/uL (0.00-0.03); Imm Gran Pct Auto 0.2 % (0.0-0.4); Lymphocytes Absolute Auto 1.6 X10*3/uL (1.2-4.9); Mean Corpuscular HGB Conc 31.4 g/dl (31.0-35.0); Mean Corpuscular Hemoglobin 25.3 pg (27.0-33.0); Mean Corpuscular Volume 80.6 fL (80-98); Mean Platelet Volume 9.4 fL (9.4-12.3); Monocytes Absolute Auto 0.4 X10*3/uL (0.1-1.2); Monocytes Percent Auto 5.9 % (2-11); Neutrophils Absolute Auto 4.1 X10*3/uL (2.0-8.3); Neutrophils Percent Auto 65.3 % (45-73); Platelet Count 365 X10*3/uL (160-400); Red Blood Count 4.43 X10*6/uL (4.20-5.50); Red Cell Distribution Width 14.3 % (11.0-16.0); White Blood Count 6.2 X10*3/uL (4.8-10.8)
[2020-09-03 05:00] LABS: Anion Gap 14 (12-20); Blood Urea Nitrogen 7 mg/dL (9-16); Calcium 8.7 mg/dL (8.4-10.2); Carbon Dioxide 21 mmol/L (22-29); Chloride 110 mmol/L (96-108); Creatinine Clr Calc Pharmacy 142.5; Estimated Glomerular Filt Rate > 60; Glucose Random 80 mg/dL (60-115); Potassium 3.8 mmol/l (3.3-5.1); Sodium 141 mmol/L (135-145)
[2020-09-03] MEDS: cefTRIAXone sodium 1 GM in 0.9 % Sodium Chloride 50 ML IV (05:45)
--- NOTE | 2020-09-03 07:16 | NM_ITS ---
EXAMINATION: NUCLEAR MEDICINE HEPATOBILIARY SCAN. CLINICAL INFORMATION: Cholelithiasis. COMPARISON: Ultrasound abdomen limited 09/01/2020. TECHNIQUE: Following intravenous administration of 5 mCi of 99m technetium mebrofenin, imaging over the right upper quadrant was obtained. FINDINGS: Normal hepatic uptake without any focal defects. There is prompt visualization of gallbladder by 13 minutes and small bowel by 26 minutes. No CCK was administered. NM/NM hepatobiliary wo pharm IMPRESSION: Patent cystic duct. Patent CBD. Normal hepatic uptake.
[2020-09-03 07:30] VITALS: BP 108/70; PULSE 56; RESP 18; TEMP 36.2; O2SAT 100
[2020-09-03 08:06] LABS: HBS Num1 176.12 mIU/mL (0-7.99); HBsAGNum1 0.68 S/CO (0.00-0.99); Hepatitis B Surface Antigen Negative (Negative); ~Hepatitis B Surface Antibody REACTIVE (Nonreactive)
[2020-09-03 08:27] LABS: HBc Num1 0.05 S/CO (0.00-0.79); Hepatitis B Core Antibody Nonreactive (Nonreactive); ~HepC Num1 0.11 S/CO (0.00-0.79); ~Hepatitis C Antibody Nonreactive (Nonreactive)
[2020-09-03 11:41] VITALS: BP 118/80; PULSE 67; RESP 18; TEMP 36.3; O2SAT 100
--- NOTE | 2020-09-03 11:52 | MHC.CM.PN ---
nurse cna caregiver note electronic medical record reviewed case discussed on multiple disciplinary rounds, met with patient she delivered a baby boy in June 2020 she lives with her infant son and finance. (whom is caring for him now). patient reports she is not smoking marijuana , , and when she did she would be out of the house and not with the baby present, . case discussed with nursing home social worker co-worker, patient is no longer breast feeding (she reported that she was not getting enough breast milk and the baby is now on formula for dme time now. she has no vna /no dme services in the home. she confirmed that she has health care proxy requested copy to be brought in . patient reports anxiety and what she called post depression referred to cares team. she is active and independent in all adls and mobiity discharge plan home no services [id number] at this time [facility]p [facility] [place] pcp at the [facility]
--- NOTE | 2020-09-03 12:03 | PM.PNGS ---
Subjective Subjective Date of Service: 09/03/20 <Priscila Greene PA-C - Last Filed: 09/03/20 12:09> 09/03/20 <Johan Tolliver MD - Last Filed: 09/03/20 13:08> Interval history: Feeling better this morning. Denies abdominal pain, nausea. Feels hungry. <Priscila Greene PA-C - Last Filed: 09/03/20 12:09> Physical Exam Vital Signs: Vital Signs: Last Vital Signs Temp 97.4 F 09/03/20 11:41 Pulse 67 09/03/20 11:41 Resp 18 09/03/20 11:41 BP 118/80 09/03/20 11:41 Pulse Ox 100 09/03/20 11:41 Body Mass Index 45.2 <Priscila Greene PA-C - Last Filed: 09/03/20 12:09> Const: General: healthy appearing, comfortable, no acute distress and alert <Priscila Greene PA-C - Last Filed: 09/03/20 12:09> Orientation/consciousness: patient oriented x3 <Priscila Greene PA-C - Last Filed: 09/03/20 12:09> Eyes: Sclerae: sclerae normal <Priscila Greene PA-C - Last Filed: 09/03/20 12:09> Resp: Effort & Inspection: normal respiratory effort <Priscila Greene PA-C - Last Filed: 09/03/20 12:09> GI: Palpation (GI): Soft to palpation, Tenderness to palpation present (GI) (mild RUQ tenderness) Rees's sign negative, no guarding, not rigid and No Rebound tenderness present <Priscila Greene PA-C - Last Filed: 09/03/20 12:09> Skin: Other: normal color <Priscila Greene PA-C - Last Filed: 09/03/20 12:09> General skin exam: no rashes or lesions noted <Priscila Greene PA-C - Last Filed: 09/03/20 12:09> Neuro: General: patient oriented x3 <Priscila Greene PA-C - Last Filed: 09/03/20 12:09> Extrem: General: Yes no clubbing, cyanosis or edema <Priscila Greene PA-C - Last Filed: 09/03/20 12:09> Progress Note: A&P Assessment and plan (1) Transaminitis: Status: Acute <MARIA FERNANDA Tracy Last Filed: 09/03/20 12:09> (2) Cholelithiasis: Status: Acute <Priscila Greene PA-C - Last Filed: 09/03/20 12:09> (3) Abdominal pain: Status: Acute <Priscila Greene PA-C - Last Filed: 09/03/20 12:09> Assessment and Plan: Feels improved this morning. GB normal and filling on HIDA scan which strongly goes against cholecystitis. VSS. Abd exam benign- mild RUQ tenderness. Would recommend trial feeding with low fat diet. If tolerating, stable for discharge from surgical standpoint. <Priscila Greene PA-C - Last Filed: 09/03/20 12:09> 25 year old female patient presenting with complaints of abdominal pain in the epigastrium. Patient with a history of recent , and previously identified fatty liver. U/S reviewed and reveals a single gallstone within the gallbladder and normal CBD. HIDA reveals normal filling of gallbladder and flow into small bowel without obstruction of the CBD. Today, she reports feeling improved with no further abdominal pain. Agree with the above assessment and plan. Advance to a low fat diet, with discharge if well tolerated. I do not think she needs a cholecystectomy for the single gallstone. <Johan Tolliver MD - Last Filed: 09/03/20 13:08> Fall Risk Details Current Medications: Current Medications Generic Name Dose Route Start Last Admin Trade Name Freq PRN Reason Stop Dose Admin Acetaminophen 650 mg 09/02/20 09:45 09/02/20 20:28 Acetaminophen 325 Mg Tablet PO 650 mg Q6H PRN Administration Pain, Mild (Pain Scale 1-3) Docusate Sodium 100 mg 09/02/20 09:45 Docusate Sodium 100 Mg Capsule PO DAILY PRN Constipation Enoxaparin Sodium 40 mg 09/02/20 09:45 09/03/20 10:13 Enoxaparin Sodium 40 Mg/0.4 Ml Syringe SUBCUT Not Given Q24H ANNELIESE Ceftriaxone Sodium 1 gm/ 50 mls @ 100 mls/hr 09/02/20 06:15 09/03/20 06:40 Sodium Chloride IV Infused Q24H ANNELIESE Infusion Dextrose/Sodium Chloride 1,000 mls @ 100 mls/hr 09/02/20 17:15 09/03/20 11:17 D5ns IVCONT 100 mls/hr .Q10H ANNELIESE Infusion Ondansetron HCl 4 mg 09/02/20 09:45 Ondansetron Hcl 4 Mg/2 Ml Vial IVPUSH Q8H PRN Nausea and Vomiting Sodium Chloride 3 ml 09/02/20 09:45 09/03/20 08:02 0.9 % Sodium Chloride Flush 3 Ml Syringe IVFLUSH Not Given QSHIFT ANNELIESE <Priscila Greene PA-C - Last Filed: 09/03/20 12:09> Time Spent With Patient Time: Total time spent is greater than 50% in coordination of care (as documented) at patient's floor/unit and/or counseling patient: <Priscila Greene PA-C - Last Filed: 09/03/20 12:09> Time with patient: 15 - 24 minutes <MARIA FERNANDA Tracy Last Filed: 09/03/20 12:09> No Severe Sepsis: No Severe Sepsis <Priscila Greene PA-C - Last Filed: 09/03/20 12:09>
--- NOTE | 2020-09-03 13:50 | PM.DS ---
DS: Providers Provider Date of admission: 09/02/20 01:09 Primary care physician: Silas Ayala MD Consults: 09/02/20 09:45 Consult to Gastroenterology Routine Consulting Provider: Garrett Redd Reason for consultation: liver abnormality Has provider been notified: No Consult to General Surgery Routine Consulting Provider: Juan C Greer Reason for consultation: cholecystitis Has provider been notified: No 09/03/20 12:13 Consult to Care Team Routine Comment: Reason for consultation: 2 mo post requests to dorothy with some one about depression/anxiety DS: Diagnosis Discharge Diagnosis (1) Abdominal pain: Status: Acute DS: Medications Discharge Medications Home Medications: Home Medications Medication Instructions Recorded Confirmed No Known Home Meds 09/02/20 09/02/20 DS: Summary Hospital Course Hospital Course: Patient was admitted for abdominal pain possibly due to biliary colic. She had a HIDA scan which was negative for acute cholecystitis. She was then able to tolerate Solid diet. patient will be discharged home and will follow up outpatient with GI and surgery is needed. Time Spent with Patient Time attestation: Total time spent providing and/or coordinating discharge services: Physical Exam Vital Signs: Vital Signs: Last Vital Signs Temp 97.4 F 09/03/20 11:41 Pulse 67 09/03/20 11:41 Resp 18 09/03/20 11:41 BP 118/80 09/03/20 11:41 Pulse Ox 100 09/03/20 11:41 Body Mass Index 45.2 General: AO X 3, no acute distress Resp: CTA bilateral CVS: S1,S2,RRR GI: soft, non tender, non distended Neuro: motor grossly intact Psych: appropriate affect DS: Data Data Completed and Pending Labs on day of discharge: 09/01/20 00:00 Urine Culture Routine 09/01/20 19:42 0.9 % Sodium Chloride [Ns] 1,000 ml IVCONT 999 mls/hr Famotidine/PF [Pepcid/PF] 20 mg IVPUSH ONCE ONE fentaNYL citrate/PF [Sublimaze] 50 mcg IVPUSH ONCE ONE ondansetron HCL [Zofran] 4 mg IVPUSH ONCE ONE US abdomen limited Stat 09/01/20 19:51 Basic Metabolic Panel Stat Complete Blood Count Auto Diff Stat Hold Lt Blue - Possible Coag Stat Lipase Stat Liver Panel Stat 09/01/20 21:13 Ur Preg Test Stat 09/01/20 22:11 CT abdomen pelvis w con Stat 09/01/20 23:56 iohexoL 350 MG/ML [Omnipaque 350 MG/ML] 85 ml IV ONCE ONE 09/02/20 00:38 COVID-19 ID NOW (Lira) Stat 09/02/20 00:55 Transfer Order Routine 09/02/20 06:38 cefTRIAXone sodium [Rocephin] 1 gm .ROUTE .STK-MED ONE 09/02/20 Breakfast NPO Diet 09/02/20 Lunch Clear Liquid Diet 09/03/20 04:18 Basic Metabolic Panel Routine Complete Blood Count Auto Diff Routine 09/03/20 05:20 cefTRIAXone sodium [Rocephin] 1 gm .ROUTE .STK-MED ONE Laboratory Last Values WBC 6.2 X10*3/uL (4.8-10.8) 09/03/20 04:18 RBC 4.43 X10*6/uL (4.20-5.50) 09/03/20 04:18 Hgb 11.2 g/dl (12.0-16.0) L 09/03/20 04:18 Hct 35.7 % (37-47) L 09/03/20 04:18 MCV 80.6 fL (80-98) 09/03/20 04:18 MCH 25.3 pg (27.0-33.0) L 09/03/20 04:18 MCHC 31.4 g/dl (31.0-35.0) 09/03/20 04:18 RDW 14.3 % (11.0-16.0) 09/03/20 04:18 Plt Count 365 X10*3/uL (160-400) 09/03/20 04:18 MPV 9.4 fL (9.4-12.3) 09/03/20 04:18 Immature Gran % (Auto) 0.2 % (0.0-0.4) 09/03/20 04:18 Neut % (Auto) 65.3 % (45-73) 09/03/20 04:18 Lymph % (Auto) 26.0 % (20-40) 09/03/20 04:18 [place] % (Auto) 5.9 % (2-11) 09/03/20 04:18 Eos % (Auto) 2.4 % (0-4) 09/03/20 04:18 Baso % (Auto) 0.2 % (0-2) 09/03/20 04:18 Lymph # (Auto) 1.6 X10*3/uL (1.2-4.9) 09/03/20 04:18 [place] # (Auto) 0.4 X10*3/uL (0.1-1.2) 09/03/20 04:18 Eos # (Auto) 0.2 X10*3/uL (0.0-0.4) 09/03/20 04:18 Baso # (Auto) 0.0 X10*3/uL (0.0-0.2) 09/03/20 04:18 Abs Immat Gran (auto) 0.01 X10*3/uL (0.00-0.03) 09/03/20 04:18 Absolute Neuts (auto) 4.1 X10*3/uL (2.0-8.3) 09/03/20 04:18 Absolute Nucleated RBC 0.000 X10*3/uL (0.0-0.012) 09/03/20 04:18 Nucleated RBC % (auto) 0.0 /100WBC (0.0-0.2) 09/03/20 04:18 Hold Blue Top SEE NOTE 09/01/20 19:51 Sodium 141 mmol/L (135-145) 09/03/20 04:18 Potassium 3.8 mmol/l (3.3-5.1) 09/03/20 04:18 Chloride 110 mmol/L (96-108) H 09/03/20 04:18 Carbon Dioxide 21 mmol/L (22-29) L 09/03/20 04:18 Anion Gap 14 (12-20) 09/03/20 04:18 BUN 7 mg/dL (9-16) L 09/03/20 04:18 Creatinine 0.66 mg/dL (0.5-1.4) 09/03/20 04:18 Estim Creat Clear Calc 142.5 09/03/20 04:18 Estimated GFR > 60 09/03/20 04:18 Random Glucose 80 mg/dL (60-115) 09/03/20 04:18 Calcium 8.7 mg/dL (8.4-10.2) 09/03/20 04:18 Total Bilirubin 0.4 mg/dL (0.0-1.0) 09/01/20 19:51 Direct Bilirubin 0.2 mg/dL (0.0-0.5) 09/01/20 19:51 AST 41 U/L (5-31) H 09/01/20 19:51 ALT 42 U/L (0-31) H 09/01/20 19:51 Alkaline Phosphatase 152 U/L (39-117) H 09/01/20 19:51 Total Protein 7.4 g/dL (6.5-8.0) 09/01/20 19:51 Albumin 4.5 g/dL (3.5-5.0) 09/01/20 19:51 Lipase 21 U/L (8-78) 09/01/20 19:51 Urine Color YELLOW 09/01/20 21:13 Urine Appearance HAZY 09/01/20 21:13 Urine pH 6.0 (5.0-8.0) 09/01/20 21:13 Ur Specific [place] 1.025 (1.005-1.025) 09/01/20 21:13 Urine Protein NEG MG/DL (NEG-TRACE) 09/01/20 21:13 Urine Glucose (UA) NEG MG/DL (NEG) 09/01/20 21:13 Urine Ketones NEG MG/DL (NEG) 09/01/20 21:13 Urine Blood 3+ (NEG) H 09/01/20 21:13 Urine Nitrite NEG (NEG) 09/01/20 21:13 Ur Leukocyte Esterase 1+ (NEG) H 09/01/20 21:13 Urine RBC 15-29 /HPF (0) H 09/01/20 21:13 Urine WBC 5-9 /HPF (0-4) H 09/01/20 21:13 Ur Squamous Epith Cells TRACE /LPF 09/01/20 21:13 Urine Bacteria NONE /LPF 09/01/20 21:13 Urine Test NEGATIVE (NEGATIVE) 09/01/20 21:13 COVID-19 (ELVI) Negative (Negative) 09/02/20 00:38 COVID-19 Clin Com See Note 09/02/20 00:38 Hep Bs Antigen Negative (Negative) 09/02/20 06:11 Hep Bs Antibody REACTIVE (Nonreactive) 09/02/20 06:11 Hep B Core Total Ab Nonreactive (Nonreactive) 09/02/20 06:11 Hepatitis C Ab (EIA) Nonreactive (Nonreactive) 09/02/20 06:11 Discharge Plan Discharge Patient Disposition: Home, Self-Care Referrals: Silas Ayala MD [Primary Care Provider] - Discharge Medications: No Action No Known Home Meds RF: 0 Discharge Orders: Discharge Order (Routine); Ordered 09/03/20 Ordered By: Thai Membreno Activity on Discharge: As tolerated Visit Report Forms: Patient Portal Discharge page Care Plan Goals: recovery Health Concerns: fatty liver Plan of Treatment: follow up with gi
[2020-09-03 14:32] LABS: Alanine Aminotransferase 66 U/L (0-31); Alkaline Phosphatase 158 U/L (39-117); Aspartate Amino Transferase 27 U/L (5-31); Bilirubin Direct 0.2 mg/dL (0.0-0.5); Bilirubin Total 0.4 mg/dL (0.0-1.0); Total Protein 6.6 g/dL (6.5-8.0)
--- NOTE | 2020-09-03 15:11 | MHC.CARE ---
CARE Team responded to consult request to speak with this patient regarding her reported anxiety and depression. She was seen in room 385, was alert, oriented and easily engaged. Patient discussed her , has been enjoying her time with the baby but is planning to go back to work end of the month, feels it will be difficult but is prepared to work three 12hr shifts. Lives alone with her partner, who had COVID-19 and was in quarantine, has support from her grandmother, other family and in-laws. Patient is interested in therapy, has been before and though she had a bad experience, is willing to try again, knows she benefit from treatment due to her past trauma/tense relationship with her own mother as she tries to grow as a parent herself. Denied current anxiety or depression, does not consider suicide when depressed. [facility], open to other suggestions. Reviewed various methods for finding a therapist such as through insurance company, EAP, ask friends/family/PCP, [employer], internet search. , RN, CM updated
[2020-09-05 07:59] LABS: Hepatitis A Antibody IgM 0.15 Index (0-0.79); ~Hepatitis A Antibody IgM Nonreactive (Nonreactive)
== END 2020-09-03 16:22 | disposition home or self-care (01) | DRG 561 ==
LOC: HO.ED 21:02 → HO.S3 09-02 13:40
PROVIDERS: Emergency Medicine Emergency Medical Services; Internal Medicine Gastroenterology; Nurse Practitioner Family; Admitting Provider Internal Medicine; Emergency Provider Emergency Medicine; PCP Pediatrics; Visit Provider Internal Medicine
DX: O99.63 Diseases of the digestive system complicating the puerperium (principal); K80.50 Calculus of bile duct without cholangitis or cholecystitis without obstruction; Z20.828 Contact with and (suspected) exposure to other viral communicable diseases
CPT/HCPCS: 36415; 74177; 76705; 78226; 80048; 80076; 81001; 81025; 83690; 85025; 86704; 86706; 86709; 86803; 87086; 87340; 87635; 96361; 96374; 96375; 99221; 99285; A9537; J0696; J2405; J3010; Q9967

== ENCOUNTER 2022-05-01 12:53 | Emergency (ER) | payer OTHER, SELFPAY ==
--- NOTE | ~2022-05-01 | US_ITS ---
EXAMINATION: ULTRASOUND PELVIC OVARIAN DOPPLER CLINICAL INFORMATION: Pelvic pain, rule out torsion. COMPARISON: None TECHNIQUE: Multiple 2-D grayscale and Doppler transabdominal/transvaginal ultrasound images were obtained. FINDINGS: Uterus: Anteverted/retroflexed measuring 12.6 x 3.8 x 4.0 cm. The endometrial stripe measures up to 0.2 cm without focal abnormality. The cervix measures up to 3 cm in length with mild anechoic fluid within the cervical canal. Color Doppler showed no abnormal vascular flow. No significant free fluid in the cul-de-sac. Right ovary: 2.9 x 1.5 x 1.5 cm with a volume of 3.4 cm. Doppler showed normal vascular flow. Left ovary: 3.1 x 2.3 x 2.0 cm with a volume of 7.5 cm. Doppler showed normal vascular flow. US/US pelvic ovarian doppler IMPRESSION: Anteverted/retroflexed uterus without other significant abnormality. No endometrial abnormality. No evidence for ovarian torsion.
--- NOTE | ~2022-05-01 | US_ITS ---
EXAMINATION: US PELVIS CLINICAL INFORMATION: Pain with heavy bleeding. Rule out torsion. COMPARISON: CT abdomen of September 01, 2020 TECHNIQUE: Ultrasound of the pelvis is performed using both transabdominal and transvaginal transducers along with Doppler. Transvaginal imaging is performed due to inadequate visualization transabdominally. FINDINGS: Uterus: The uterus is anteverted and measures 12.6 x 3.8 x 4.0 cm. No cervical abnormality appreciated. There is fluid seen within the cervix. The double wall endometrial thickness is 2 mm. The uterus is smooth in contour and has normal myometrial echogenicity. No visible fibroid. Adnexa: Both ovaries are visualized. There is normal color flow to the adnexa. There is no ovarian torsion. There is no pelvic ascites or fluid collection. Right ovary measures 2.9 x 1.5 x 1.5 cm. Volume of 3.4 mL. No abnormal adnexal mass appreciated. Left ovary measures 3.1 x 2.3 x 2.0 cm. Volume of 7.5 mL. No abnormal adnexal masses appreciated. US/US pelvic and transvaginal IMPRESSION: No evidence of ovarian torsion. Fluid is seen within the cervix.
[2022-05-01 13:05] VITALS: BP 121/67; PULSE 78; RESP 18; O2SAT 97; BMI 51.7
--- NOTE | 2022-05-01 13:18 | ED_ITS ---
HPI - Female Genitourinary General Chief complaint: Vaginal Bleeding Stated complaint: Miscarriage? Time Seen by Provider: 05/01/22 12:59 Source: patient Mode of arrival: ambulatory History of Present Illness HPI Narrative: 26-year-old female with a past medical history of transaminitis, s/p emergent , presenting to the ED complaining of heavy bright red vaginal bleeding noted this morning (quantified to about half a cup). Admits LMP beginning of December, patient was suspicious she is , made an appointment for [facility] which is on Thursday. Also reports abdominal cramping. Denies fever, chills, lightheadedness/dizziness, CP, nausea/vomiting, diarrhea, vaginal discharge MD elicited complaint: vaginal bleeding and pelvic pain Related Data Previous Rx's Medication Instructions Recorded doxycycline hyclate 100 mg tablet 100 mg PO BID 14 days #28 tabs 05/01/22 metronidazole 500 mg tablet 500 mg PO BID 14 days #28 tabs 05/01/22 Allergies Allergy/AdvReac Type Severity Reaction Status Date / Time No Known Allergies Allergy Verified 05/01/22 13:05 Review of Systems Review of Systems: Constitutional: No Fever, No Chills, No Night Sweats, No Fatigue, No Malaise ENT/Mouth: No Hearing loss, No Ear Pain, No Nasal Congestion, No sore throat, No Rhinorrhea, No Swallowing Difficulty Eyes: No Eye Pain, No Swelling, No Redness, No Vision Changes Cardiovascular: No Chest Pain, No SOB, No Dyspnea on Exertion, No Orthopnea, No Edema, No Palpitations Respiratory: No Cough, No Sputum, No Dyspnea Gastrointestinal: No Nausea, No Vomiting, No Diarrhea, No Constipation, + Abdominal pain Genitourinary: + irregular bleeding, No Dysuria, No Urinary Frequency, No Hematuria, No Urinary Incontinence/retention, No Urgency, No Flank Pain, No Urinary Flow Changes, No Hesitancy Musculoskeletal: No joint pain, No Myalgias, No Joint Swelling Skin: No Skin Lesions, No rash Neuro: No Weakness, No Numbness, No Dizziness, No Headache Yes all other systems are reviewed and are negative Constitutional: Constitutional: Reports as per [facility] Past Medical History Attestation statement: The following information was validated with the patient. Medical History (Updated 05/01/22 @ 20:02 by JILLIAN Rogel) delivery delivered (~06/2020) Transaminitis Social History Social History Household Members: Family Housing: Apartment Substance Use Type: Marijuana Advance Directives: No Advance Directives Information Provided: No service: No Current occupational status: unemployed Physical Exam Vital Signs: Vital Signs: Last Vital Signs Temp 97.9 F 05/01/22 16:32 Pulse 74 05/01/22 16:32 Resp 17 05/01/22 16:32 BP 135/78 05/01/22 16:32 Pulse Ox 99 05/01/22 16:32 O2 Del Method 05/01/22 16:32 BMI result Body Mass Index 51.7 Const: Other: Tearful General: cooperative and no acute distress Nutritional Appearance: o bese Orientation/consciousness: patient oriented x3 Limitations: no limitations HEENT: Head: Yes normal to inspection and Yes atraumatic Ears: hearing grossly normal bilaterally General nose exam: Normal external nose present Face and sinus: Yes normal facial exam Eyes: General: appearance normal, both eyes and all related structures EOM: EOMs intact bilaterally Neck: Neck: Yes normal visual inspection and Yes no meningeal signs Resp: Effort & Inspection: normal respiratory effort and no respiratory distress Auscultation: clear to auscultation bilaterally Cardio: Rate: regular rate Heart sounds: S1 normal heart sound present and S2 normal heart sound present GI: Inspection: Yes normal to inspection Palpation (GI): Soft to palpation, Tenderness to palpation present (GI) (Diffusely) with no rebound tenderness, no guarding and not rigid : General: Yes no CVA tenderness Speculum Exam - Vagina: vaginal bleeding (with clots) Speculum Exam - Cervix: Abnormal cervical discharge present bloody and Cervical tenderness present Bimanual exam- vagina & uterus: Cervical tenderness present Bimanual Exam- Adnexa, other: tender (> right) bilaterally OB/external & speculum: vaginal bleeding (with clots) Back/Spine/Pelvis: Back: no CVA tenderness Skin: Rashes: no rashes Wounds: no wounds Neuro: General: patient oriented x3, tone normal and no meningeal signs Gait exam (Neuro): Normal gait present Extrem: General: Yes normal to inspection Course Course Course Narrative: -no leukocytosis. H&H is stable. Labs otherwise unremarkable. Beta quant negative -1743--UA with RBCs/not infected US pelvic and transvaginal IMPRESSION: No evidence of ovarian torsion. Fluid is seen within the cervix. US pelvic ovarian doppler IMPRESSION: Anteverted/retroflexed uterus without other significant abnormality. No endometrial abnormality. No evidence for ovarian torsion.? > will obtain repeat CBC to monitor H&H and discuss case with OBGYN Discussed case with OBGYN Dr. [place] who suspects this is dysfunctional uterine bleeding. Patient is already on oral OCPs, recommended continuation. Recommended patient have follow-up with her OBGYN or our OB in 48 hours. Agreed will treat patient for PID due to tenderness on exam. -1999-repeat CBC without drop in H&H. Patient received IM Rocephin, persist with p.o. doxycycline and metronidazole in the ED. Discussed results with patient and mother including worrisome signs and symptoms and needed close follow-up with OB. She verbalized understanding and feels safe for discharge home at this time MDM - Female Genitourinary MDM Narrative Medical decision making narrative: 26-year-old female with a past medical history of transaminitis, s/p emergent , presenting to the ED complaining of heavy bright red vaginal bleeding noted this morning with abdominal cramping. On exam vital signs stable, NAD, tearful, abdomen soft diffusely tender, on pelvic exam vaginal bleeding with clotting noted, mild CMT and bilateral adnexal tenderness worse on the right. No signs of active hemorrhage. Concern for vs ectopic vs spontaneous/threatened vs ?PID. Lower suspicion for ovarian torsion, appendicitis or diverticulitis. Plan: Labs, UA, , STI testing, pelvic ultrasound Differential Diagnosis Differential diagnosis: Likely urinary tract infection Medical Records Attestation: I reviewed the patient's medical records. Lab Data Attestation: I reviewed the patient's lab results. Result diagrams: 05/01/22 18:58 05/01/22 13:58 Labs: Lab Results 05/01/22 05/01/22 05/01/22 Range/Units 13:58 13:58 13:58 WBC 8.2 (4.8-10.8) X10*3/uL RBC 5.19 (4.20-5.50) X10*6/uL Hgb 14.4 (12.0-16.0) g/dl Hct 43.2 (37.0-47.0) % MCV 83.2 (80.0-98.0) fL MCH 27.7 (27.0-33.0) pg MCHC 33.3 (31.0-35.0) g/dl RDW 13.4 (11.0-16.0) % Plt Count 357 (160-400) X10*3/uL MPV 9.6 (9.4-12.3) fL Immature Gran % (Auto) 0.2 (0.0-0.4) % Neut % (Auto) 72.3 (45-73) % Lymph % (Auto) 21.0 (20-40) % [place] % (Auto) 4.8 (2-11) % Eos % (Auto) 1.5 (0-4) % Baso % (Auto) 0.2 (0-2) % Lymph # (Auto) 1.7 (1.2-4.9) X10*3/uL [place] # (Auto) 0.4 (0.1-1.2) X10*3/uL Eos # (Auto) 0.1 (0.0-0.4) X10*3/uL Baso # (Auto) 0.0 (0.0-0.2) X10*3/uL Abs Immat Gran (auto) 0.02 (0.00-0.03) X10*3/uL Absolute Neuts (auto) 5.9 (2.0-8.3) x10*3/uL Absolute Nucleated RBC 0.000 (0.0-0.012) X10*3/uL Nucleated RBC % (auto) 0.0 (0.0-0.2) /100WBC Sodium 138 (135-145) mmol/L Potassium 4.1 (3.3-5.1) mmol/L Chloride 106 (96-108) mmol/L Carbon Dioxide 20 L (22-29) mmol/L Anion Gap 16 (12-20) BUN 7 L (9-16) mg/dL Creatinine 0.69 (0.5-1.4) mg/dL Estim Creat Clear Calc 147.0 Estimated GFR > 60 Random Glucose 90 (60-115) mg/dL Calcium 8.9 (8.4-10.2) mg/dL Total Bilirubin 0.3 (0.0-1.0) mg/dL Direct Bilirubin < 0.2 (0.0-0.5) mg/dL AST 21 (5-31) U/L ALT 24 (0-31) U/L Alkaline Phosphatase 118 H D (39-117) U/L Total Protein 7.3 (6.5-8.0) g/dL Albumin 4.3 (3.5-5.0) g/dL Lipase 9 (8-78) U/L Beta HCG, Quant < 2 mIU/mL Urine Color Urine Appearance Urine pH (5.0-8.0) Ur Specific [place] (1.005-1.025) Urine Protein (NEG-TRACE) MG/DL Urine Glucose (UA) (NEG) MG/DL Urine Ketones (NEG) MG/DL Urine Blood (NEG) Urine Nitrite (NEG) Ur Leukocyte Esterase (NEG) Urine RBC (0) /HPF Urine WBC (0-4) /HPF Ur Squamous Epith Cells /LPF Urine Bacteria /LPF Urine Mucus /LPF Urine Test (NEGATIVE) Blood Type O Positive Antibody Screen NEGATIVE 05/01/22 05/01/22 05/01/22 Range/Units 14:51 16:36 18:58 WBC 8.5 (4.8-10.8) X10*3/uL RBC 5.02 (4.20-5.50) X10*6/uL Hgb 13.9 (12.0-16.0) g/dl Hct 41.6 (37.0-47.0) % MCV 82.9 (80.0-98.0) fL MCH 27.7 (27.0-33.0) pg MCHC 33.4 (31.0-35.0) g/dl RDW 13.5 (11.0-16.0) % Plt Count 318 (160-400) X10*3/uL MPV 9.4 (9.4-12.3) fL Immature Gran % (Auto) 0.4 (0.0-0.4) % Neut % (Auto) 72.4 (45-73) % Lymph % (Auto) 20.2 (20-40) % [place] % (Auto) 5.7 (2-11) % Eos % (Auto) 1.1 (0-4) % Baso % (Auto) 0.2 (0-2) % Lymph # (Auto) 1.7 (1.2-4.9) X10*3/uL [place] # (Auto) 0.5 (0.1-1.2) X10*3/uL Eos # (Auto) 0.1 (0.0-0.4) X10*3/uL Baso # (Auto) 0.0 (0.0-0.2) X10*3/uL Abs Immat Gran (auto) 0.03 (0.00-0.03) X10*3/uL Absolute Neuts (auto) 6.1 (2.0-8.3) x10*3/uL Absolute Nucleated RBC 0.000 (0.0-0.012) X10*3/uL Nucleated RBC % (auto) 0.0 (0.0-0.2) /100WBC Sodium (135-145) mmol/L Potassium (3.3-5.1) mmol/L Chloride (96-108) mmol/L Carbon Dioxide (22-29) mmol/L Anion Gap (12-20) BUN (9-16) mg/dL Creatinine (0.5-1.4) mg/dL Estim Creat Clear Calc Estimated GFR Random Glucose (60-115) mg/dL Calcium (8.4-10.2) mg/dL Total Bilirubin (0.0-1.0) mg/dL Direct Bilirubin (0.0-0.5) mg/dL AST (5-31) U/L ALT (0-31) U/L Alkaline Phosphatase (39-117) U/L Total Protein (6.5-8.0) g/dL Albumin (3.5-5.0) g/dL Lipase (8-78) U/L Beta HCG, Quant mIU/mL Urine Color STRAW Urine Appearance HAZY Urine pH 6.0 (5.0-8.0) Ur Specific [place] 1.015 (1.005-1.025) Urine Protein NEG (NEG-TRACE) MG/DL Urine Glucose (UA) NEG (NEG) MG/DL Urine Ketones NEG (NEG) MG/DL Urine Blood 3+ H (NEG) Urine Nitrite NEG (NEG) Ur Leukocyte Esterase NEG (NEG) Urine RBC 30-49 H (0) /HPF Urine WBC 0 (0-4) /HPF Ur Squamous Epith Cells TRACE /LPF Urine Bacteria NONE /LPF Urine Mucus TRACE /LPF Urine Test NEGATIVE (NEGATIVE) Blood Type Antibody Screen Discharge Plan Discharge Clinical Impression: DUB (dysfunctional uterine bleeding) Patient Disposition: Home, Self-Care Instructions: Dysfunctional Uterine Bleeding (ED) Additional Instructions: Continue taking her home prescribed medications including her oral control. Additionally we are treating you for pelvic infection, you received 1 injection in the emergency department, continue taking other prescribed medications twice daily for 2 weeks. Please do not drink alcohol while taking Flagyl as well make you very sick. If bleeding persists, worsens, he developed lightheadedness/dizziness, persistent worsening abdominal pain or fever return to the emergency department immediately You need to follow-up with OBGYN in 2 days Prescriptions: New doxycycline hyclate 100 mg tablet 100 mg PO BID 14 Days Qty: 28 0RF metronidazole 500 mg tablet 500 mg PO BID 14 Days Qty: 28 0RF Referrals: Silas [place] MD [Physician] - 2 days
[2022-05-01 14:05] LABS: MANUAL DIFF FLAG NO
[2022-05-01 14:07] LABS: Basophils Percent Auto 0.2 % (0-2); Eosinophils Absolute Auto 0.1 X10*3/uL (0.0-0.4); Eosinophils Percent Auto 1.5 % (0-4); Hematocrit 43.2 % (37.0-47.0); Hemoglobin 14.4 g/dl (12.0-16.0); Imm Gran Abs Auto 0.02 X10*3/uL (0.00-0.03); Imm Gran Pct Auto 0.2 % (0.0-0.4); Lymphocytes Absolute Auto 1.7 X10*3/uL (1.2-4.9); Mean Corpuscular HGB Conc 33.3 g/dl (31.0-35.0); Mean Corpuscular Hemoglobin 27.7 pg (27.0-33.0); Mean Corpuscular Volume 83.2 fL (80.0-98.0); Mean Platelet Volume 9.6 fL (9.4-12.3); Monocytes Absolute Auto 0.4 X10*3/uL (0.1-1.2); Monocytes Percent Auto 4.8 % (2-11); Neutrophils Absolute Auto 5.9 x10*3/uL (2.0-8.3); Neutrophils Percent Auto 72.3 % (45-73); Platelet Count 357 X10*3/uL (160-400); Red Blood Count 5.19 X10*6/uL (4.20-5.50); Red Cell Distribution Width 13.4 % (11.0-16.0); White Blood Count 8.2 X10*3/uL (4.8-10.8)
[2022-05-01 14:28] LABS: Alanine Aminotransferase 24 U/L (0-31); Albumin Level 4.3 g/dL (3.5-5.0); Alkaline Phosphatase 118 U/L (39-117); Anion Gap 16 (12-20); Aspartate Amino Transferase 21 U/L (5-31); Bilirubin Direct < 0.2 mg/dL (0.0-0.5); Bilirubin Total 0.3 mg/dL (0.0-1.0); Blood Urea Nitrogen 7 mg/dL (9-16); Calcium 8.9 mg/dL (8.4-10.2); Carbon Dioxide 20 mmol/L (22-29); Chloride 106 mmol/L (96-108); Estimated Glomerular Filt Rate > 60; Glucose Random 90 mg/dL (60-115); Lipase 9 U/L (8-78); Potassium 4.1 mmol/L (3.3-5.1); Sodium 138 mmol/L (135-145); Total Protein 7.3 g/dL (6.5-8.0)
[2022-05-01 14:33] LABS: HCG Quantitative < 2 mIU/mL
[2022-05-01 15:04] LABS: UPreg QC Valid YES; Urine Pregnancy NEGATIVE (NEGATIVE)
[2022-05-01 16:32] VITALS: BP 135/78; PULSE 74; RESP 17; TEMP 36.6; O2SAT 99
[2022-05-01 16:59] LABS: Appearance Urine HAZY; Color Urine STRAW; Glucose Urine UA NEG (NEG); Leukocyte Esterase Urine NEG (NEG); Nitrite Urine NEG (NEG); Specific Gravity - Urine 1.015 (1.005-1.025); UACC Culture Trigger NO; Urine Blood 3+ (NEG); Urine Ketones NEG (NEG); Urine Protein NEG (NEG-TRACE)
[2022-05-01 17:23] LABS: WBC Urine 0 /HPF (0-4)
[2022-05-01 17:24] LABS: Mucus Urine TRACE /LPF; RBC Urine 30-49 /HPF (0); Squamous Epithelial Cell Urine TRACE /LPF
--- NOTE | 2022-05-01 18:01 | P.CONOB_ITS ---
GUIDE FOREIGN TOUR - CN: HPI Data of Consult Consult date: 05/01/22 Primary Care Provider: None Physician Consult Narrative Narrative: I was consulted on Marylin Amin who is a 26 year old female who presented to the ED complaining of vaginal bleeding associated with pelvic cramping started this morning around half a cup the patient.? No associated fever or chills, no lightheadedness or dizziness, no nausea or vomiting or any other complaints. The patient has been having regular bleeding last menstrual period was early A pril since then did not have her menses till this morning, the patient was on Depo-Provera starting June of 2021 but was having continuous abnormal bleeding and then she was switched to control pills. Workup done emergency room included the following H&H within normal, pelvic ultrasound unremarkable, hCG quantitative less than 2 cc:: CC: OB [facility], 1928–1983 Past Medical History Medical History (Updated 05/01/22 @ 18:10 by Silas Colorado MD) delivery delivered (~06/2020) Transaminitis Social History Social History Household Members: Family Housing: Apartment Substance Use Type: Marijuana Advance Directives: No Advance Directives Information Provided: No service: No Current occupational status: unemployed Meds Allergies Allergy/AdvReac Type Severity Reaction Status Date / Time No Known Allergies Allergy Verified 05/01/22 13:05 Home Medications Medication Instructions Recorded Confirmed Last Taken Type No Known Home Meds 09/02/20 09/02/20 Unknown History GUIDE FOREIGN TOUR Physical Exam Vitals Vital signs: Temp Pulse Resp BP Pulse Ox O2 Del Method 97.9 F 74 17 135/78 99 05/01/22 16:32 05/01/22 16:32 05/01/22 16:32 05/01/22 16:32 05/01/22 16:32 05/01/22 16:32 BMI result Body Mass Index 51.7 Additional Comments: Reported by Jett Morris in the emergency room: Abdominal diffuse tenderness, no evidence of active vaginal bleeding, cervical motion tenderness and adnexa bilateral tenderness GUIDE FOREIGN TOUR - Results Labs CBC & Chem 7: 05/01/22 13:58 05/01/22 13:58 Labs: Short CBC 05/01/22 Range/Units 13:58 WBC 8.2 (4.8-10.8) X10*3/uL Hgb 14.4 (12.0-16.0) g/dl Hct 43.2 (37.0-47.0) % Plt Count 357 (160-400) X10*3/uL BMP 05/01/22 13:58 Sodium 138 Potassium 4.1 Chloride 106 Carbon Dioxide 20 L BUN 7 L Creatinine 0.69 Calcium 8.9 Liver Function 05/01/22 Range/Units 13:58 Total Bilirubin 0.3 (0.0-1.0) mg/dL Direct Bilirubin < 0.2 (0.0-0.5) mg/dL AST 21 (5-31) U/L ALT 24 (0-31) U/L Alkaline Phosphatase 118 H D (39-117) U/L Albumin 4.3 (3.5-5.0) g/dL Urine 05/01/22 05/01/22 Range/Units 14:51 16:36 Urine Color STRAW Urine Appearance HAZY Urine pH 6.0 (5.0-8.0) Ur Specific [place]orne 1.015 (1.005-1.025) Urine Protein NEG (NEG-TRACE) MG/DL Urine Glucose (UA) NEG (NEG) MG/DL Urine Test NEGATIVE (NEGATIVE) Antibody Screen Antibody Screen NEGATIVE 05/01/22 13:58 Imaging US - abdomen: Radiologist's impression: ITS Impressions Pelvic/Transvag US 05/01/22 15:20 IMPRESSION: No evidence of ovarian torsion. Fluid is seen within the cervix. Doppler Study Ultrasound 05/01/22 16:02 IMPRESSION: Anteverted/retroflexed uterus without other significant abnormality. No endometrial abnormality. No evidence for ovarian torsion. Assessment and Plan (1) Abnormal uterine bleeding (AUB): Status: Acute Recommended to JILLIAN Rogel in the emergency room the following: Since H&H are normal, vital signs are stable, no evidence of active vaginal bleeding, recommended for the patient to stay on control pills and di scharge follow-up within 48 hours with her OBGYN. Instructions to be given to patient to call come back to emergency room in case of heavy vaginal bleeding. (2) Elevated alkaline phosphatase level: Status: Acute Recommended for the patient to follow-up with her PCP regarding elevated alkaline phosphatase (3) PID (acute pelvic inflammatory disease): Status: Acute Since the patient has abdominal tenderness, cervical motion tenderness and adnexal tenderness recommended the following GC and chlamydia to be taken and to start the patient on ceftriaxone 500 mg IM x1 then doxycycline 100 mg p.o. b.i.d. with Flagyl 500 mg p.o. b.i.d. for 14 days and follow-up in 48 hours without patient OBGYN. Instructions to be given to patient to come back to emergency room in case of nausea and vomiting, fever above 100.4, worsening or persistence of her pelvic pain. I spent a total of 20 minutes reviewing the chart, communicating with the ER provider and documenting in the medical record. This note was generated with a voice recognition program. Some errors may have been overlooked during the review of this note. Sometimes these errors may affect the content or meaning of a given sentence.
[2022-05-01 19:01] LABS: MANUAL DIFF FLAG NO
[2022-05-01 19:02] LABS: Basophils Percent Auto 0.2 % (0-2); Eosinophils Absolute Auto 0.1 X10*3/uL (0.0-0.4); Eosinophils Percent Auto 1.1 % (0-4); Hematocrit 41.6 % (37.0-47.0); Hemoglobin 13.9 g/dl (12.0-16.0); Imm Gran Abs Auto 0.03 X10*3/uL (0.00-0.03); Imm Gran Pct Auto 0.4 % (0.0-0.4); Lymphocytes Absolute Auto 1.7 X10*3/uL (1.2-4.9); Lymphocytes Percent Auto 20.2 % (20-40); Mean Corpuscular HGB Conc 33.4 g/dl (31.0-35.0); Mean Corpuscular Hemoglobin 27.7 pg (27.0-33.0); Mean Corpuscular Volume 82.9 fL (80.0-98.0); Mean Platelet Volume 9.4 fL (9.4-12.3); Monocytes Absolute Auto 0.5 X10*3/uL (0.1-1.2); Monocytes Percent Auto 5.7 % (2-11); Neutrophils Absolute Auto 6.1 x10*3/uL (2.0-8.3); Neutrophils Percent Auto 72.4 % (45-73); Platelet Count 318 X10*3/uL (160-400); Red Blood Count 5.02 X10*6/uL (4.20-5.50); Red Cell Distribution Width 13.5 % (11.0-16.0); White Blood Count 8.5 X10*3/uL (4.8-10.8)
[2022-05-01] MEDS: metroNIDAZOLE 500 MG TABLET PO (19:52)
[2022-05-01] MEDS: cefTRIAXone sodium 1 GM, Lidocaine HCl 1 % MPF 2.1 ML IM (19:52)
[2022-05-01 20:13] VITALS: BP 128/70; PULSE 78; RESP 14; TEMP 36.7; O2SAT 98
[2022-05-02 00:01] LABS: CT PCR NOT DETECTED (Not Detect.); NG PCR NOT DETECTED (Not Detect.)
[2022-05-02 09:22] LABS: BV Int Neg Control Negative (Negative); BV Int Pos Control Positive (Positive)
== END 2022-05-01 20:14 | disposition home or self-care (01) ==
PROVIDERS: Physician Assistant; Emergency Provider Emergency Medicine
DX: N93.9 Abnormal uterine and vaginal bleeding, unspecified (principal); N73.9 Female pelvic inflammatory disease, unspecified; R74.8 Abnormal levels of other serum enzymes
CPT/HCPCS: 36415; 76830; 76856; 80048; 80076; 81001; 81025; 83690; 84702; 85025; 86850; 86900; 86901; 87480; 87491; 87510; 87591; 87660; 93975; 96372; 99284; J0696

== ENCOUNTER 2025-07-05 19:47 | Emergency (ER) | payer SELFPAY ==
--- NOTE | ~2025-07-05 | XR_ITS ---
CLINICAL HISTORY: pain x 1 year 2 view chest x-ray Comparison: None provided Findings: The lungs are clear. Heart size is normal. No acute fracture. IMPRESSION: 1. No acute findings. This document has been electronically signed by: Ankit Sánchez MD on 07/05/2025 21:12:11
--- NOTE | 2025-07-05 19:49 | ECG_ITS ---
Test Reason : CP Blood Pressure : */* mmHG Vent. Rate : 80 BPM Atrial Rate : 80 BPM P-R Int : 130 ms QRS Dur : 80 ms QT Int : 366 ms P-R-T Axes : 43 72 24 degrees QTcB Int : 422 ms Normal sinus rhythm with sinus arrhythmia Normal ECG No previous ECGs available Referred By: Generic ED Physician Electronically Signed By: DONG PEREIRA MD
[2025-07-05 20:04] VITALS: BP 117/78; PULSE 85; RESP 18; TEMP 36.1; O2SAT 99; BMI 50.4
--- NOTE | 2025-07-05 20:09 | ED_ITS ---
HPI - Chest Pain General Chief Complaint: Chest Pain Stated Complaint: cp Time Seen by Provider: 07/05/25 20:59 Source: patient and other (significant other) Mode of arrival: ambulatory Limitations: no limitations History of Present Illness ED Provider: Mindy Gomez PA-C HPI narrative: Patient presents with epigastric chest pain that is been present for the past year worse in the last day. Reports history of gastritis in 2019 not sure whether this is similar she tried Maalox twice with no difference. She admits to having a poor appetite. History of cholecystectomy. She denies any infectious symptoms such as fevers chills coughing but does report that it hurts worse especially in the epigastric region with deep inspiration. Reports maternal grandmother recently diagnosed with potential TIA this had her concerned. Patient reports sometimes pain does radiate to her left arm. Denies any falls or trauma. No headache or dizziness. Sometimes would makes this worse but no abdominal discomfort per patient. MD complaint: chest pain Prior episodes: Yes Related Data Previous Rx's ?Medication ?Instructions ?Recorded doxycycline hyclate 100 mg tablet 100 mg PO BID 14 day s #28 tabs 05/01/22 metronidazole 500 mg tablet 500 mg PO BID 14 days #28 tabs 05/01/22 omeprazole 20 mg capsule,delayed 20 mg PO DAILY #30 ca ps 07/05/25 release sucralfate 1 gram tablet 1 g PO Q6H 28 days #112 tabs 07/05/25 Allergies Allergy/AdvReac Type Severity Reaction Status Date / Time No Known Allergies Allergy Verified 07/05/25 20:08 Review of Systems 2 Review of Systems: Yes all other systems are reviewed and are negative PMFSH Past Medical History Attestation statement: The following information was validated with the patient. Source: old records reviewed, obtained from family and nursing notes reviewed Medical History Transaminitis delivery delivered (~06/2020) Social History Social History Household Members: Family Housing: Apartment Comment: sleeping Substance Use Type: Marijuana Advance Directives: No Advance Directives Information Provided: Yes Do you have a plan to hurt others: No Plan service: No Current occupational status: unemployed Physical Exam 2 Exam: Exam: General: Appears in no acute distress, appears well nourished body habitus is obese, appears stated age. No septic or ill-appearing. Vitals reviewed normal, PMH/Social and Surgical hx reviewed including allergies and current medications. - reviewed for prior visits here Head: Normocephalic, no obvious trauma or skin lesions noted. Eyes: EOMI, conj and sclera clear ENMT: moist oral mucosa Neck: trachea midline, no lymphadenopathy Cardiovascular: peripheral perfusion normal, Regular heart rate, regular rhythm Respiratory: no respiratory distress, lungs clear Abdomen: Obese abdomen tender epigastric region without any guarding, neg mallory's (gallbladder surgically absent) Extremities: warm and moving without difficulty Psych: Cooperative and calm Neuro: Alert and oriented. Vital Signs: Vital Signs: Last Vital Signs Temp 97.0 F 07/05/25 21:28 Pulse 85 07/05/25 21:28 Resp 18 07/05/25 21:28 BP 117/78 07/05/25 21:28 Pulse Ox 99 07/05/25 21:28 O2 Del Method Room Air 07/05/25 21:28 BMI result Body Mass Index 50.4 Course Course Course Narrative: This is a RME preformed in triage by Mindy Gomez PA-C. Date: 07/05/2025, time 810 pm. Patient presents with epigastric chest pain that is been present for the past year worse in the last day. Reports history of gastritis in 2019 not sure whether this is similar she tried Maalox twice with no difference. She admits to having a poor appetite. History of cholecystectomy. She denies any infectious symptoms such as fevers chills coughing but does report that it hurts worse especially in the epigastric region with deep inspiration. Reports maternal grandmother recently diagnosed with potential TIA this had her concerned. Patient reports sometimes pain does radiate to her left arm. Denies any falls or trauma. No headache or dizziness. Sometimes would makes this worse but no abdominal discomfort per patient. PE: well appearing no distress, TTP epigastric region, lungs clear, heart normal Suspect potential gastritis Work UP: Chest x-ray EKG cardiac and abdominal labs, PERC score is 0 PE can be ruled out clinically Will defer full ROS and PE to treating provider. Patient will continued to be monitored in the interim. Medical Decision Making Medical Decision Making MDM Narrative: Well appearing 30 y/o F here today with epigastric pain described as chest pain. H and P as above. PMH sig for obesity and gastritis in the past. From triage, abdominal and cardiac labs initiated with EKG and CXR. SHe is stable. Chest pain in young person. EKG and CXR normal. IL: not likely young normal EKG PE: PERC score is 0, can rule out clinically PNA: no infectious sxs, CXR is clear PTX: no hypoxic or tachycardic, not pleuritic, CXR is normal pericarditis: no diffuse ST elevations, no friction rub on exam aortic dissection: BP normal, pulses equal and symmetric, no widened mediastinum on CXR mass effect: normal ekg Musculoskeletal: potential, but patient denies suspicion. nontender chest wall not consistent with costochondritis either GERD: potential, likely gastritis given hx, no current heartburn. Anxiety: possible has no hx of this and/ or panic attacks No life-threatening etiology identified. She is stable with benign reassuring exam, will return to ED if worse. Patient agrees with plan. d/c to home. Differential Diagnosis Differential Diagnoses: The differential diagnosis associated with the presentation includes gastritis PUD GERD PTX PE ACS anxiety MS strain Admission/Observation Consideration of admission/observation: Escalation of care including admission/observation considered Patient would have been admitted to the hospital had her work up had any findings where hospital admission was appropriate and her clinical presentation warranted hospital admission. Lab Data MDM Lab Attestation statement: I reviewed the patient's lab results. No leukocytosis, anemia, hepatobiliary disease, pancreatitis, liver or kidney dysfunction. 07/05/25 20:26 07/05/25 20:26 Labs: Lab Results 07/05/25 Range/Units 20:26 WBC 8.2 (4.8-10.8) X10*3/uL RBC 4.76 (4.20-5.50) X10*6/uL Hgb 13.9 (12.0-16.0) g/dl Hct 39.8 (37.0-47.0) % MCV 83.6 (80.0-98.0) fL MCH 29.2 (27.0-33.0) pg MCHC 34.9 (31.0-35.0) g/dl RDW 12.1 (11.0-16.0) % Plt Count 315 (160-400) X10*3/uL MPV 9.2 L (9.4-12.3) fL Immature Gran % (Auto) 0.4 (0.0-0.4) % Neut % (Auto) 68.6 (45-73) % Lymph % (Auto) 21.6 (20-40) % Barton % (Auto) 7.3 (2-11) % Eos % (Auto) 1.7 (0-4) % Baso % (Auto) 0.4 (0-2) % Lymph # (Auto) 1.8 (1.2-4.9) X10*3/uL Barton # (Auto) 0.6 (0.1-1.2) X10*3/uL Eos # (Auto) 0.1 (0.0-0.4) X10*3/uL Baso # (Auto) 0.0 (0.0-0.2) X10*3/uL Abs Immat Gran (auto) 0.03 (0.00-0.03) X10*3/uL Absolute Neuts (auto) 5.7 (2.0-8.3) x10*3/uL Absolute Nucleated RBC 0.000 (0.0-0.012) X10*3/uL Nucleated RBC % (auto) 0.0 (0.0-0.2) /100WBC Sodium 139 (135-145) mmol/L Potassium 3.8 (3.3-5.1) mmol/L Chloride 107 (96-108) mmol/L Carbon Dioxide 26 (22-29) mmol/L Anion Gap 10 L (12-20) BUN 8 L (9-16) mg/dL Creatinine 0.64 (0.5-1.4) mg/dL Estim Creat Clear Calc 150.3 Estimated GFR > 60 Random Glucose 91 (60-115) mg/dL Calcium 9.2 (8.4-10.2) mg/dL Total Bilirubin 0.3 (0.0-1.0) mg/dL AST 18 (5-31) U/L ALT 19 (0-31) U/L Alkaline Phosphatase 93 (39-117) U/L Troponin I High Sens < 2.7 (<3.5-17.0) ng/L Total Protein 7.3 (6.5-8.0) g/dL Albumin 4.4 (3.5-5.0) g/dL Lipase 10 (8-78) U/L Independent Interpretation I performed an independent interpretation of an: Plain X-Ray Interpretation: CXR: NO mass, no PNA, no PTX EK bpm, NSR, No overt evidence of STEMI. No evidence of Brugada's sign, delta wave, epsilon wave, significantly prolonged QTc, or malignant arrhythmia Radiology Impression Discussion of test interpretation with radiology: I have reviewed the radiologist's reading. Independent Historian Clinical information obtained from an independent historian. History obtained from or confirmed by: Other (significant other) Tests considered The following testing was considered but not selected: Would have considered CTA of the chest or D-dimer had patient's PERC score not been 0 however sensitive 0 this testing was deferred Prescription Management I considered prescription management with: Pain Medication Chronic Conditions Patient?s care impacted by: Other (obesity) Social Determinants Patient?s care significantly limited by Social Determinants of Health including: Other Social Determinant of Health Critical Care Time Critical Care Time Critical Care Time: No Discharge Plan Discharge Clinical Impression: Acute gastritis without bleeding, Chest pain Patient Disposition: Home, Self-Care Instructions: Gastritis (DC) Additional Instructions: You were seen in the emergency department today for chest pain that has been chronic. You had a work up that was able to rule out life threatening etiology. Your presentation today is most consistent with acute gastritis. -Take Prilosec (omeprazole) once a day for 30 days, and use Pepcid (famotidine) as needed for your gastritis. You may have also been prescribed sucralfate. Take 4 times a day for 28 days. -AVOID alcohol, spicy foods, Motrin/Aleve medications, and eating past 8:00 at night. -You may take antacids such as Maalox or Tums for acute symptoms but realize that these medications will not prevent your symptoms. -Remain upright for at least 45 minutes following meals. -Follow-up with your primary care doctor or gastroenterology. -Return to ED if you develop fever, chills, increased pain, vomiting or worsening symptoms. Other things to do to prevent symptoms: -Lose weight (if you are overweight) -Raise the head of your bed by 6 to 8 inches (for example, by putting blocks of wood or rubber under 2 legs of the bed or a Styrofoam wedge under the mattress) -Avoid foods that make your symptoms worse (examples include coffee, chocolate, alcohol, peppermint, and fatty foods) -Cut down on the amount of alcohol you drink -Stop smoking, if you smoke -Eat a bunch of small meals each day, rather than 2 or 3 big meals -Avoid lying down for 3 hours after a meal Prescriptions: New omeprazole 20 mg capsule,delayed release(DR/EC) 20 mg PO DAILY Qty: 30 2RF sucralfate 1 gram tablet 1 g PO Q6H 28 Days Qty: 112 0RF No Action doxycycline hyclate 100 mg tablet 100 mg PO BID 14 Days Qty: 28 0RF metronidazole 500 mg tablet 500 mg PO BID 14 Days Qty: 28 0RF Referrals: [facility] [Provider Group, Gastroenterology] Stand Alone Forms: Work/School Release Interventions: ED Discharge Assessment Last Done: 07/05/25 21:28 Discharge Date/Time: 07/05/25 21:29 Print Language: Syriac
[2025-07-05 20:31] LABS: MANUAL DIFF FLAG NO
[2025-07-05 20:33] LABS: Hematocrit 39.8 % (37.0-47.0); Hemoglobin 13.9 g/dl (12.0-16.0); Imm Gran Abs Auto 0.03 X10*3/uL (0.00-0.03); Imm Gran Pct Auto 0.4 % (0.0-0.4); Lymphocytes Absolute Auto 1.8 X10*3/uL (1.2-4.9); Mean Corpuscular HGB Conc 34.9 g/dl (31.0-35.0); Mean Corpuscular Hemoglobin 29.2 pg (27.0-33.0); Mean Corpuscular Volume 83.6 fL (80.0-98.0); NRBC Abs Auto 0.000 X10*3/uL (0.0-0.012); NRBC Pct Auto 0.0 /100WBC (0.0-0.2); Platelet Count 315 X10*3/uL (160-400); Red Blood Count 4.76 X10*6/uL (4.20-5.50); White Blood Count 8.2 X10*3/uL (4.8-10.8)
[2025-07-05 20:47] LABS: Alanine Aminotransferase 19 U/L (0-31); Albumin Level 4.4 g/dL (3.5-5.0); Alkaline Phosphatase 93 U/L (39-117); Anion Gap 10 (12-20); Aspartate Amino Transferase 18 U/L (5-31); Blood Urea Nitrogen 8 mg/dL (9-16); Calcium 9.2 mg/dL (8.4-10.2); Carbon Dioxide 26 mmol/L (22-29); Chloride 107 mmol/L (96-108); Creatinine Clr Calc Pharmacy 150.3; Estimated Glomerular Filt Rate > 60; Lipase 10 U/L (8-78); Potassium 3.8 mmol/L (3.3-5.1); Sodium 139 mmol/L (135-145); Total Protein 7.3 g/dL (6.5-8.0)
[2025-07-05 20:57] LABS: Troponin-I High Sensitivity < 2.7 ng/L (<3.5-17.0)
[2025-07-05 21:28] VITALS: BP 117/78; PULSE 85; RESP 18; TEMP 36.1; O2SAT 99
== END 2025-07-05 21:29 | disposition home or self-care (01) ==
PROVIDERS: Physician Assistant Medical; Emergency Provider Emergency Medicine Emergency Medical Services
DX: R07.9 Chest pain, unspecified (principal); K29.00 Acute gastritis without bleeding; Z87.19 Personal history of other diseases of the digestive system; Z90.49 Acquired absence of other specified parts of digestive tract; Z79.899 Other long term (current) drug therapy
CPT/HCPCS: 36415; 71046; 80053; 83690; 84484; 85025; 93005; 99283

== ENCOUNTER → 2025-07-05 19:49 | Outpatient (BNV) | payer SELFPAY | PROVIDERS: Emergency Provider Emergency Medicine Emergency Medical Services; Visit Provider Internal Medicine Cardiovascular Disease | DX: I49.9 Cardiac arrhythmia, unspecified (principal) | CPT/HCPCS: 93010 ==

== ENCOUNTER → 2025-07-05 20:11 | Outpatient (BNV) | payer SELFPAY | PROVIDERS: Emergency Provider Emergency Medicine Emergency Medical Services; Visit Provider Radiology Diagnostic Radiology | DX: R10.13 Epigastric pain (principal) | CPT/HCPCS: 71046 ==